=== PATIENT | male | born 1965 | race Caucasian/White ===

== ENCOUNTER → 2019-04-07 08:49 | Outpatient (BNVA) | payer MEDICAID, SELFPAY | PROVIDERS: Family Provider Nurse Practitioner Family; PCP Nurse Practitioner Family; Visit Provider Internal Medicine Rheumatology | DX: M05.79 Rheumatoid arthritis with rheumatoid factor of multiple sites without organ or systems involvement (principal); Z79.52 Long term (current) use of systemic steroids; Z79.899 Other long term (current) drug therapy; F17.200 Nicotine dependence, unspecified, uncomplicated | CPT/HCPCS: 96365; 96374; 99213; 99214; J3262; J7050 ==

== ENCOUNTER 2019-04-07 09:00 | Outpatient (CLI) | payer MEDICAID, SELFPAY | END 2019-04-07 09:01 | disposition home or self-care (01) | LOC: RHEOACUTE 04-24 14:39 | PROVIDERS: Family Provider Nurse Practitioner Family; PCP Nurse Practitioner Family; Visit Provider Internal Medicine Rheumatology | DX: Z76.89 Persons encountering health services in other specified circumstances (principal) | CPT/HCPCS: J3262 ==

== ENCOUNTER 2019-05-10 08:49 | Outpatient (CLI) | payer MEDICAID, SELFPAY ==
[2019-05-10 09:00] VITALS: BP 155/88; PULSE 99; RESP 16; TEMP 36.6; O2SAT 98
[2019-05-10 10:20] VITALS: BP 148/84; PULSE 88; RESP 18; TEMP 36.6; O2SAT 98
== END 2019-05-10 08:50 | disposition home or self-care (01) ==
LOC: RHEOACUTE 08:49
PROVIDERS: Family Provider Nurse Practitioner Family; PCP Nurse Practitioner Family; Visit Provider Internal Medicine Rheumatology
DX: M05.79 Rheumatoid arthritis with rheumatoid factor of multiple sites without organ or systems involvement (principal)
CPT/HCPCS: 96365; J3262

== ENCOUNTER 2019-06-07 08:50 | Outpatient (CLI) | payer MEDICAID, SELFPAY ==
[2019-06-07 09:15] VITALS: BP 137/95; PULSE 104; RESP 16; TEMP 36.7; O2SAT 93
[2019-06-07 11:05] VITALS: BP 158/98; PULSE 90; RESP 16; TEMP 36.9; O2SAT 94
== END 2019-06-07 08:51 | disposition home or self-care (01) ==
LOC: RHEOACUTE 08:50
PROVIDERS: Family Provider Nurse Practitioner Family; PCP Nurse Practitioner Family; Visit Provider Internal Medicine Rheumatology
DX: M05.79 Rheumatoid arthritis with rheumatoid factor of multiple sites without organ or systems involvement (principal); Z79.899 Other long term (current) drug therapy
CPT/HCPCS: 36415; 80076; 82565; 85651; 86140; 86480; 86704; 86803; 87340; 96365; J3262

== ENCOUNTER → 2019-06-07 09:51 | Outpatient (BNVA) | payer MEDICAID, SELFPAY | PROVIDERS: Family Provider Nurse Practitioner Family; PCP Nurse Practitioner Family; Visit Provider Internal Medicine Rheumatology | DX: M05.79 Rheumatoid arthritis with rheumatoid factor of multiple sites without organ or systems involvement (principal); Z79.899 Other long term (current) drug therapy | CPT/HCPCS: 85025 ==

== ENCOUNTER → 2019-06-12 11:46 | Outpatient (BNVA) | payer MEDICAID, SELFPAY | PROVIDERS: Family Provider Nurse Practitioner Family; PCP Nurse Practitioner Family; Visit Provider Internal Medicine Rheumatology | DX: M05.79 Rheumatoid arthritis with rheumatoid factor of multiple sites without organ or systems involvement (principal); Z79.899 Other long term (current) drug therapy; F17.210 Nicotine dependence, cigarettes, uncomplicated | CPT/HCPCS: 99214 ==

== ENCOUNTER 2019-06-12 13:05 | Outpatient (CLI) | payer MEDICAID, SELFPAY ==
--- NOTE | 2019-06-12 13:09 | XR_ITS ---
WS: [id number] XR hand RT min 3V* 30570 REASON FOR EXAM: rheumatoid arthritis FINDINGS: Ankylosing changes are noted between the ulna and radius articulations. There is loss of the articular space between the radius and carpal bones. There is deformity of the first metacarpal carpal articulation with cystic changes noted. There is degenerate changes of the distal interphalangeal joints. XR/XR hand RT min 3V* 99110 IMPRESSION: Moderately advanced osteoarthritic changes of the hand.
--- NOTE | 2019-06-12 13:09 | XR_ITS ---
WS: [id number] XR foot RT min 3V* 26423 REASON FOR EXAM: rheumatoid arthritis FINDINGS: Prominence of the head of the fifth metacarpal tarsal suggest Tailors bunion. There is a cyst in the distal proximal first phalanx. Degenerate changes along the anterior articula r surface of the talus, tarsal navicular and cuneiforms. XR/XR foot RT min 3V* 06013 IMPRESSION: Findings suggest osteoarthritis.
--- NOTE | 2019-06-12 13:09 | XR_ITS ---
WS: [id number] XR hand LT min 3V* 95203 REASON FOR EXAM: rheumatoid arthritis FINDINGS: This study shows subluxation of the phalanges from the carpal heads. There are cystic rios es seen in in the ulna and radius with large spur off the styloid process of the ulna. Cystic changes are also seen in the carpal bones. There is degenerate changes of the second and third metacarpal carpal carpal articulations. The subluxation differential diagnosis includes rheumatoid arthritis, lupus. There appears to be a mixture of rheumatoid and osteoarthritic changes. XR/XR hand LT min 3V* 86735 IMPRESSION: Sure arthritis with subluxation noted.
--- NOTE | 2019-06-12 13:09 | XR_ITS ---
WS: [id number] XR foot LT min 3V* 84788 REASON FOR EXAM: rheumatoid arthritis FINDINGS: Degenerated changes of the distal interphalangeal joints. The metacarpal tarsals and tarsals are normal. The calcaneus was normal. XR/XR foot LT min 3V* 52461 IMPRESSION: Osteoarthritic changes of the distal interphalangeal joints.
== END 2019-06-12 13:06 | disposition home or self-care (01) ==
LOC: RADWPI 13:08
PROVIDERS: Family Provider Nurse Practitioner Family; Visit Provider Internal Medicine Rheumatology
DX: M05.9 Rheumatoid arthritis with rheumatoid factor, unspecified (principal); M19.042 Primary osteoarthritis, left hand; M19.041 Primary osteoarthritis, right hand; M19.072 Primary osteoarthritis, left ankle and foot; M19.071 Primary osteoarthritis, right ankle and foot
CPT/HCPCS: 73130; 73630

== ENCOUNTER 2019-07-05 08:50 | Outpatient (CLI) | payer MEDICAID, SELFPAY ==
[2019-07-05 09:05] VITALS: BP 136/94; PULSE 92; RESP 16; TEMP 36.6; O2SAT 97
[2019-07-05 11:05] VITALS: BP 148/91; PULSE 95; RESP 16; TEMP 36.4
== END 2019-07-05 08:51 | disposition home or self-care (01) ==
LOC: RHEOACUTE 08:51
PROVIDERS: Family Provider Nurse Practitioner Family; Visit Provider Internal Medicine Rheumatology
DX: M05.79 Rheumatoid arthritis with rheumatoid factor of multiple sites without organ or systems involvement (principal)
CPT/HCPCS: 96365; J3262

== ENCOUNTER 2019-08-03 08:54 | Outpatient (CLI) | payer MEDICAID, SELFPAY ==
[2019-08-03 09:10] VITALS: BP 143/91; PULSE 96; RESP 16; TEMP 36.7; O2SAT 98
[2019-08-03 10:57] VITALS: BP 153/96; PULSE 94; RESP 16; TEMP 36.6
--- NOTE | 2019-08-03 10:59 | PC.NURSE ---
BP high. Discussed with pt BP has been pretty consistently high every infusion date. Instructed to take BP at home and f/u with PCP. Verbalized understanding.
== END 2019-08-03 08:55 | disposition home or self-care (01) ==
LOC: RHEOACUTE 08:55
PROVIDERS: Family Provider Nurse Practitioner Family; Visit Provider Internal Medicine Rheumatology
DX: M05.79 Rheumatoid arthritis with rheumatoid factor of multiple sites without organ or systems involvement (principal)
CPT/HCPCS: 96365; J3262

== ENCOUNTER 2019-08-31 08:33 | Outpatient (CLI) | payer MEDICAID, SELFPAY ==
[2019-08-31 08:41] VITALS: BP 150/94; PULSE 99; RESP 16; TEMP 36.8; O2SAT 97
[2019-08-31] MEDS: acetaminophen 325 mg Tablet 975 MG PO (09:26)
[2019-08-31] MEDS: diphenhydrAMINE 25 mg Capsule PO (09:26)
[2019-08-31 10:50] VITALS: BP 149/82; PULSE 104; RESP 16; TEMP 36.7; O2SAT 97
== END 2019-08-31 08:34 | disposition home or self-care (01) ==
LOC: RHEOACUTE 08:35
PROVIDERS: Family Provider Nurse Practitioner Family; Visit Provider Internal Medicine Rheumatology
DX: M05.79 Rheumatoid arthritis with rheumatoid factor of multiple sites without organ or systems involvement (principal)
CPT/HCPCS: 96365; J3262

== ENCOUNTER 2019-10-05 09:02 | Outpatient (CLI) | payer MEDICAID, SELFPAY ==
[2019-10-05 09:04] VITALS: BP 133/86; PULSE 100; RESP 16; TEMP 36.9; O2SAT 98
[2019-10-05] MEDS: acetaminophen 325 mg Tablet 975 MG PO (09:50)
[2019-10-05] MEDS: diphenhydrAMINE 25 mg Capsule PO (09:50)
[2019-10-05 13:14] VITALS: BP 136/82; PULSE 88; RESP 16; O2SAT 96
== END 2019-10-05 09:03 | disposition home or self-care (01) ==
LOC: RHEOACUTE 09:02
PROVIDERS: Family Provider Nurse Practitioner Family; Visit Provider Internal Medicine Rheumatology
DX: M05.79 Rheumatoid arthritis with rheumatoid factor of multiple sites without organ or systems involvement (principal); Z79.899 Other long term (current) drug therapy
CPT/HCPCS: 80076; 82565; 85025; 85651; 86140; 96365; J3262

== ENCOUNTER 2019-11-07 08:50 | Outpatient (CLI) | payer MEDICAID, SELFPAY ==
[2019-11-07 08:57] VITALS: BP 155/96; PULSE 97; RESP 16; TEMP 36.8; O2SAT 98
[2019-11-07 08:59] VITALS: BMI 25.1
[2019-11-07 10:53] VITALS: BP 139/98; PULSE 96; RESP 16; TEMP 36.8; O2SAT 96
--- NOTE | 2019-11-07 10:55 | PC.NURSE ---
Denies any changes to home medications.
== END 2019-11-07 08:51 | disposition home or self-care (01) ==
LOC: RHEOACUTE 08:50
PROVIDERS: Family Provider Nurse Practitioner Family; Visit Provider Internal Medicine Rheumatology
DX: M05.79 Rheumatoid arthritis with rheumatoid factor of multiple sites without organ or systems involvement (principal)
CPT/HCPCS: 96365; J3262

== ENCOUNTER 2019-12-06 09:22 | Outpatient (CLI) | payer MEDICAID, SELFPAY ==
[2019-12-06 09:26] VITALS: BP 157/96; PULSE 92; RESP 16; TEMP 36.6; O2SAT 92
[2019-12-06] MEDS: diphenhydrAMINE 25 mg Capsule PO (09:43)
[2019-12-06] MEDS: acetaminophen 325 mg Tablet 975 MG PO (09:43)
[2019-12-06 10:31] VITALS: BMI 25.1
--- NOTE | 2019-12-06 10:36 | PC.NURSE ---
c/o right arm and shoulder pain. Discussed taking the Prednisone dose for flare.
[2019-12-06 11:37] VITALS: BP 155/97; PULSE 90; RESP 16; O2SAT 96
== END 2019-12-06 09:23 | disposition home or self-care (01) ==
LOC: RHEOACUTE 09:24
PROVIDERS: Family Provider Nurse Practitioner Family; Visit Provider Internal Medicine Rheumatology
DX: M05.79 Rheumatoid arthritis with rheumatoid factor of multiple sites without organ or systems involvement (principal)
CPT/HCPCS: 96365; J3262

== ENCOUNTER 2020-01-03 09:17 | Outpatient (CLI) | payer MEDICAID, SELFPAY ==
[2020-01-03 09:00] VITALS: BP 155/102; PULSE 115; RESP 16; TEMP 36.3; O2SAT 98
[2020-01-03] MEDS: acetaminophen 325 mg Tablet 975 MG PO (09:28)
[2020-01-03] MEDS: diphenhydrAMINE 25 mg Capsule PO (09:28)
[2020-01-03 09:30] VITALS: BP 156/92; PULSE 98; RESP 16; O2SAT 98
[2020-01-03 11:00] VITALS: BP 148/95; PULSE 98; RESP 16; O2SAT 98
--- NOTE | 2020-01-03 11:21 | PC.NURSE ---
0900 Pt arrived for infusion. Verbalized upset that his father is dying in hospital out of town. Discussed whether or not to do infusion. Pt wanted to proceed. BP elevated. Dr. Ibarra notified. Will continue to monitor after resting.
--- NOTE | 2020-01-03 11:28 | PC.NURSE ---
0930 labs obtained with IV start.
== END 2020-01-03 09:18 | disposition home or self-care (01) ==
LOC: RHEOACUTE 09:17
PROVIDERS: Family Provider Nurse Practitioner Family; Visit Provider Internal Medicine Rheumatology
DX: Z79.899 Other long term (current) drug therapy (principal); M05.79 Rheumatoid arthritis with rheumatoid factor of multiple sites without organ or systems involvement
CPT/HCPCS: 80076; 82565; 85025; 85651; 86140; 96365; J3262

== ENCOUNTER 2020-02-05 09:43 | Outpatient (CLI) | payer MEDICAID, SELFPAY ==
[2020-02-05 09:40] VITALS: BP 142/90; PULSE 104; RESP 16; TEMP 36.6; O2SAT 98
[2020-02-05] MEDS: acetaminophen 325 mg Tablet 975 MG PO (09:48)
[2020-02-05] MEDS: diphenhydrAMINE 25 mg Capsule PO (09:48)
[2020-02-05 10:05] VITALS: BMI 25.1
[2020-02-05 11:20] VITALS: BP 136/91; PULSE 86; RESP 16; O2SAT 16
== END 2020-02-05 09:44 | disposition home or self-care (01) ==
LOC: RHEOACUTE 09:43
PROVIDERS: Family Provider Nurse Practitioner Family; Visit Provider Internal Medicine Rheumatology
DX: M05.79 Rheumatoid arthritis with rheumatoid factor of multiple sites without organ or systems involvement (principal)
CPT/HCPCS: 96365; J3262

== ENCOUNTER 2020-03-13 11:31 | Outpatient (CLI) | payer MEDICAID, SELFPAY ==
[2020-03-13 11:56] VITALS: BP 158/90; PULSE 84; RESP 18; TEMP 36.5; O2SAT 96
[2020-03-13] MEDS: acetaminophen 325 mg Tablet 975 MG PO (12:11)
[2020-03-13] MEDS: diphenhydrAMINE 25 mg Capsule PO (12:11)
[2020-03-13 12:29] VITALS: BMI 25.9
[2020-03-13 13:55] VITALS: BP 152/96; PULSE 101; RESP 16; O2SAT 98
== END 2020-03-13 11:32 | disposition home or self-care (01) ==
LOC: RHEOACUTE 11:32
PROVIDERS: Family Provider Nurse Practitioner Family; Visit Provider Internal Medicine Rheumatology
DX: M05.79 Rheumatoid arthritis with rheumatoid factor of multiple sites without organ or systems involvement (principal); Z79.899 Other long term (current) drug therapy; M65.9 Synovitis and tenosynovitis, unspecified; F17.210 Nicotine dependence, cigarettes, uncomplicated
CPT/HCPCS: 96365; 99214; J3262

== ENCOUNTER 2020-04-10 08:56 | Outpatient (CLI) | payer MEDICAID, SELFPAY ==
[2020-04-10 09:10] VITALS: BP 162/91; PULSE 88; RESP 16; TEMP 36.9; O2SAT 97
[2020-04-10] MEDS: diphenhydrAMINE 25 mg Capsule PO (09:45)
[2020-04-10] MEDS: acetaminophen 325 mg Tablet 975 MG PO (09:45)
[2020-04-10] MEDS: tocilizumab 400 MG, tocilizumab 200 MG, tocilizumab 80 MG in sodium chloride 0.9% (100 ... 100 MG IV (10:00)
[2020-04-10 10:51] VITALS: BMI 26.2
[2020-04-10 11:21] VITALS: BP 160/88; PULSE 89; RESP 16; O2SAT 96
== END 2020-04-10 08:57 | disposition home or self-care (01) ==
LOC: RHEOACUTE 08:56
PROVIDERS: Family Provider Nurse Practitioner Family; Visit Provider Internal Medicine Rheumatology
DX: M05.79 Rheumatoid arthritis with rheumatoid factor of multiple sites without organ or systems involvement (principal); Z79.899 Other long term (current) drug therapy
CPT/HCPCS: 80076; 82565; 85025; 85651; 86140; 96365; J3262

== ENCOUNTER 2020-05-16 13:35 | Outpatient (CLI) | payer MEDICAID, SELFPAY ==
[2020-05-16] MEDS: acetaminophen 325 mg Tablet 975 MG PO (14:05)
[2020-05-16] MEDS: diphenhydrAMINE 25 mg Capsule PO (14:05)
[2020-05-16 15:30] VITALS: BP 136/94; PULSE 18; RESP 17; TEMP 37.2; O2SAT 97
--- NOTE | 2020-06-03 08:49 | PC.NURSE ---
Due to an administrative issue we are doing a late entry for clarity of the medical record. The infusion case was routine and the approximate stop time was 1524 based upon the start time of 1424.
== END 2020-05-16 13:36 | disposition home or self-care (01) ==
LOC: RHEOACUTE 13:38 → ONCMED 13:40
PROVIDERS: Visit Provider Internal Medicine Rheumatology
DX: M05.79 Rheumatoid arthritis with rheumatoid factor of multiple sites without organ or systems involvement (principal)
CPT/HCPCS: 96365; J3262

== ENCOUNTER 2020-06-19 13:54 | Outpatient (CLI) | payer MEDICAID, SELFPAY ==
[2020-06-19 14:18] VITALS: BP 148/91; PULSE 97; RESP 16; TEMP 37; O2SAT 98
[2020-06-19] MEDS: diphenhydrAMINE 25 mg Capsule PO (14:40)
[2020-06-19] MEDS: acetaminophen 325 mg Tablet 975 MG PO (14:40)
[2020-06-19 14:57] LABS: Basophils % 0.5 %; Eosinophils # 0.1 10^3/uL (0.0-0.8); Eosinophils % 2.1 %; Hematocrit 44.7 % (42.0-52.0); Hemoglobin 14.8 g/dL (11.7-16.6); Lymphocytes # 1.7 10^3/uL (0.8-4.8); Lymphocytes % 28.1 %; Mean Corpuscular HGB Conc 33.1 g/dL (30.0-36.0); Mean Corpuscular Hemoglobin 29.5 pg (28.0-34.0); Mean Corpuscular Volume 89.2 fL (80-94); Mean Platelet Volume 10.2 fL (7.4-10.4); Neutrophils # 3.22 10^3/uL (1.8-7.7); Nucleated Red Blood Cells % 0 %; Platelet Count 272 10^3/cmm (130-400); Red Blood Count 5.01 10^6/uL (4.1-5.3); Red Cell Distribution Width 12.7 % (12.1-15.1); White Blood Count 6.1 10^3/uL (4.0-10.0)
[2020-06-19 15:40] VITALS: BP 136/87; PULSE 85; RESP 16; TEMP 36.6; O2SAT 95
[2020-06-19 15:41] LABS: Alanine Aminotransferase 35 U/L (0-41); Albumin Level 3.8 g/dL (3.5-5.2); Alkaline Phosphatase 84 IU/L (40-130); Aspartate Amino Transferase 28 U/L (0-40); C Reactive Protein 34.6 mg/L (0.0-4.9); Globulin 3.5 g/dL (1.3-4.6); Total Bilirubin 0.3 mg/dL (0.15-1.2); Total Protein 7.3 g/dL (6.6-8.7)
[2020-06-19 16:03] LABS: Erythrocyte Sedimentation Rate 13 mm/hr (0-10)
== END 2020-06-19 13:55 | disposition home or self-care (01) ==
PROVIDERS: Visit Provider Internal Medicine Rheumatology
DX: M05.79 Rheumatoid arthritis with rheumatoid factor of multiple sites without organ or systems involvement (principal)
CPT/HCPCS: 80076; 82565; 85025; 85651; 86140; 96365; J3262

== ENCOUNTER 2020-07-17 14:04 | Outpatient (CLI) | payer MEDICAID, SELFPAY ==
[2020-07-17 14:20] VITALS: BP 147/94; PULSE 108; RESP 18; TEMP 37.4; O2SAT 97
[2020-07-17] MEDS: acetaminophen 325 mg Tablet 975 MG PO (14:25)
[2020-07-17] MEDS: diphenhydrAMINE 25 mg Capsule PO (14:30)
[2020-07-17] MEDS: sodium chloride 0.9% 250 ML 75 ML IV (14:30)
[2020-07-17 16:05] VITALS: BP 126/89; PULSE 93; RESP 18; TEMP 37.2; O2SAT 97
[2020-07-17 16:19] VITALS: BP 126/89; PULSE 93; RESP 18; TEMP 37.2; O2SAT 93
== END 2020-07-17 14:05 | disposition home or self-care (01) ==
PROVIDERS: Visit Provider Internal Medicine Rheumatology
DX: M05.79 Rheumatoid arthritis with rheumatoid factor of multiple sites without organ or systems involvement (principal)
CPT/HCPCS: 96365; J3262; J7050

== ENCOUNTER 2020-08-14 14:02 | Outpatient (CLI) | payer MEDICAID, SELFPAY ==
[2020-08-14 14:23] VITALS: BP 145/100; PULSE 94; RESP 18; TEMP 37; O2SAT 98
[2020-08-14] MEDS: acetaminophen 325 mg Tablet 975 MG PO (14:43)
[2020-08-14] MEDS: diphenhydrAMINE 25 mg Capsule PO (14:43)
[2020-08-14 15:01] LABS: Basophils % 0.8 %; Eosinophils # 0.2 10^3/uL (0.0-0.8); Eosinophils % 4.4 %; Hematocrit 47.5 % (42.0-52.0); Hemoglobin 15.5 g/dL (11.7-16.6); Lymphocytes # 2.3 10^3/uL (0.8-4.8); Lymphocytes % 48.3 %; Mean Corpuscular HGB Conc 32.6 g/dL (30.0-36.0); Mean Corpuscular Hemoglobin 29.3 pg (28.0-34.0); Mean Corpuscular Volume 89.8 fL (80-94); Mean Platelet Volume 10.5 fL (7.4-10.4); Monocytes # 0.5 10^3/uL (0.2-0.9); Neutrophils # 1.71 10^3/uL (1.8-7.7); Neutrophils % 36.3 %; Nucleated Red Blood Cells % 0 %; Platelet Count 234 10^3/cmm (130-400); Red Blood Count 5.29 10^6/uL (4.1-5.3); Red Cell Distribution Width 13.2 % (12.1-15.1); White Blood Count 4.7 10^3/uL (4.0-10.0)
[2020-08-14] MEDS: sodium chloride 0.9% 250 ML 125 ML IV (15:18)
[2020-08-14 15:27] LABS: Alanine Aminotransferase 32 U/L (0-41); Alkaline Phosphatase 96 IU/L (40-130); Aspartate Amino Transferase 22 U/L (0-40); C Reactive Protein 0.4 mg/L (0.0-4.9); Glomerular Filtration Rate 87.3 mL/min (90-130); Total Bilirubin 0.4 mg/dL (0.15-1.2)
[2020-08-14 16:03] LABS: Erythrocyte Sedimentation Rate 2 mm/hr (0-10)
[2020-08-14 16:10] VITALS: BP 139/101; PULSE 78; RESP 18; TEMP 37.1; O2SAT 97
--- NOTE | 2020-08-14 16:16 | PC.NURSE ---
Patient to infusion suite for Actemra infusion. BP was elevated at 145/100 on initial assessment. Post infusion vitals indicate a continued elevated pressure at 139/101. I discussed with the patient that he should follow up with his family physician to address this. Patient is asymptomatic on discharge, and shows no s/s/ of distress. He voiced understanding about seeking attention for the elevated pressure, and agrees to follow up with their office.
== END 2020-08-14 14:03 | disposition home or self-care (01) ==
PROVIDERS: Visit Provider Internal Medicine Rheumatology
DX: M05.79 Rheumatoid arthritis with rheumatoid factor of multiple sites without organ or systems involvement (principal)
CPT/HCPCS: 80076; 82565; 85025; 85651; 86140; 96365; J3262; J7050

== ENCOUNTER 2020-09-11 13:53 | Outpatient (CLI) | payer MEDICAID, SELFPAY ==
[2020-09-11 14:19] VITALS: BP 135/90; PULSE 90; RESP 20; TEMP 37.2; O2SAT 98
[2020-09-11] MEDS: diphenhydrAMINE 25 mg Capsule PO (14:30)
[2020-09-11] MEDS: acetaminophen 325 mg Tablet 975 MG PO (14:30)
[2020-09-11] MEDS: sodium chloride 0.9% 250 ML 100 ML IV (14:33)
[2020-09-11 15:57] VITALS: BP 135/87; PULSE 87; RESP 18; TEMP 36.8; O2SAT 97
== END 2020-09-11 13:54 | disposition home or self-care (01) ==
PROVIDERS: Referring Provider Internal Medicine Rheumatology; Visit Provider Internal Medicine Rheumatology
DX: M05.79 Rheumatoid arthritis with rheumatoid factor of multiple sites without organ or systems involvement (principal)
CPT/HCPCS: 96365; J3262; J7050

== ENCOUNTER 2020-10-28 13:14 | Outpatient (CLI) | payer MEDICAID, SELFPAY ==
[2020-10-28 13:29] VITALS: BP 131/93; PULSE 95; RESP 20; TEMP 37.1; O2SAT 99
[2020-10-28] MEDS: diphenhydrAMINE 25 mg Capsule PO (13:57)
[2020-10-28] MEDS: acetaminophen 325 mg Tablet 975 MG PO (13:57)
[2020-10-28] MEDS: sodium chloride 0.9% 250 ML 75 ML IV (14:00)
[2020-10-28 14:27] LABS: Basophils % 0.7 %; Eosinophils # 0.3 10^3/uL (0.0-0.8); Eosinophils % 4.4 %; Hematocrit 49.7 % (42.0-52.0); Hemoglobin 16.1 g/dL (11.7-16.6); Lymphocytes # 1.9 10^3/uL (0.8-4.8); Lymphocytes % 31.3 %; Mean Corpuscular HGB Conc 32.4 g/dL (30.0-36.0); Mean Corpuscular Hemoglobin 29.9 pg (28.0-34.0); Mean Corpuscular Volume 92.2 fL (80-94); Mean Platelet Volume 10.1 fL (7.4-10.4); Monocytes # 0.8 10^3/uL (0.2-0.9); Monocytes % 13.1 %; Neutrophils # 3.06 10^3/uL (1.8-7.7); Neutrophils % 50.2 %; Nucleated Red Blood Cells % 0 %; Platelet Count 356 10^3/cmm (130-400); Red Blood Count 5.39 10^6/uL (4.1-5.3); Red Cell Distribution Width 12.6 % (12.1-15.1); White Blood Count 6.1 10^3/uL (4.0-10.0)
[2020-10-28 14:59] LABS: Alanine Aminotransferase 29 U/L (0-41); Albumin Level 3.9 g/dL (3.5-5.2); Alkaline Phosphatase 107 IU/L (40-130); Aspartate Amino Transferase 24 U/L (0-40); C Reactive Protein 3.1 mg/L (0.0-4.9); Globulin 3.6 g/dL (1.3-4.6); Glomerular Filtration Rate 77.3 mL/min (90-130); Total Bilirubin 0.2 mg/dL (0.15-1.2); Total Protein 7.5 g/dL (6.6-8.7)
[2020-10-28 15:02] LABS: Erythrocyte Sedimentation Rate 19 mm/hr (0-10)
[2020-10-28 15:23] VITALS: BP 147/98; PULSE 88; RESP 18; TEMP 36.7; O2SAT 99
== END 2020-10-28 13:15 | disposition home or self-care (01) ==
PROVIDERS: Visit Provider Internal Medicine Rheumatology
DX: M05.79 Rheumatoid arthritis with rheumatoid factor of multiple sites without organ or systems involvement (principal)
CPT/HCPCS: 80076; 82565; 85025; 85651; 86140; 96365; J3262; J7050

== ENCOUNTER 2020-11-25 09:54 | Outpatient (CLI) | payer MEDICAID, SELFPAY ==
[2020-11-25 10:01] VITALS: BP 145/100; PULSE 100; RESP 18; TEMP 36.6; O2SAT 97
[2020-11-25] MEDS: NON-FORMULARY MEDICATION 1 EACH SUBCUT (10:09)
[2020-11-25 10:19] VITALS: BP 145/98; PULSE 86; RESP 18; TEMP 37; O2SAT 96
== END 2020-11-25 09:55 | disposition home or self-care (01) ==
LOC: ONCMED 09:55
PROVIDERS: Referring Provider Internal Medicine Rheumatology; Visit Provider Internal Medicine Rheumatology
DX: M05.79 Rheumatoid arthritis with rheumatoid factor of multiple sites without organ or systems involvement (principal)
CPT/HCPCS: 96372

== ENCOUNTER → 2021-01-21 13:57 | Outpatient (BNVA) | payer MEDICAID, SELFPAY | PROVIDERS: Visit Provider Internal Medicine Rheumatology | DX: M05.79 Rheumatoid arthritis with rheumatoid factor of multiple sites without organ or systems involvement (principal); Z79.899 Other long term (current) drug therapy; Z71.89 Other specified counseling; F17.200 Nicotine dependence, unspecified, uncomplicated | CPT/HCPCS: 99214 ==

== ENCOUNTER 2021-02-28 15:37 | Emergency (ER) | payer MEDICAID, SELFPAY ==
--- NOTE | 2021-02-28 15:40 | XR_ITS ---
WS: [id number] Left shoulder, 3 views, 02/28/2021 Clinical Data: left shoulder pain Comparison: Left shoulder, 03/06/2015. Findings: There is severe erosion with cyst formation of the humeral head. The destructive changes have advance d significantly since the last shoulder x-ray. The AC joint is normal. The adjacent left clavicle and ribs are unremarkable. There is also irregularity and cyst formation of the adjacent glenoid. No fractures or dislocations are seen. XR/XR shoulder LT min 2V* 15738 Impression: Severe erosion of the left humeral head with cyst formation and sclerosis along with erosion and cyst formation of the adjacent glenoid.
[2021-02-28 16:10] VITALS: BP 144/89; PULSE 111; RESP 16; TEMP 36.8; O2SAT 95
--- NOTE | 2021-02-28 16:31 | ED_ITS ---
HPI - Extremity Problem General: Chief complaint: Extremity Injury, Upper Stated complaint: LEFT SHOULDER PAIN Time Seen by Provider: 02/28/21 16:31 Source: patient Mode of arrival: ambulatory Limitations: no limitations History of Present Illness: HPI Narrative: 55-year-old male presents to the ER today for left shoulder pain. Patient reports 3 days ago he slept with his arm a lakisha his head and reports he woke up with severe left shoulder pain and numbness into his hand at times. Patient reports he has degeneration of the left shoulder joint which he is aware of however it does not normally bother him this much. Patient has a history of severe rheumatoid arthritis and is currently taking an injection for that. Patient was prescribed prednisone and tizanidine yesterday h owever it is not touching his pain and he is unable to rest. Patient denies headache, fever, chills, chest pain, shortness of breath, nausea, vomiting, diarrhea, constipation. MD Complaint: extremity pain and extremity swelling Onset (ago): day(s) (3) Pain Consistency: constant Location: left and upper extremity Severity scale (1-10): 9 Quality: aching Relieving factors: nothing Exacerbating factors: range of motion Associated symptoms: Deny chest pain, fever(s) or rash Review of Systems General: Reports: 10 or more systems reviewed and unremarkable except in HPI and below Const: Denies: fever(s), chills or body aches ENMT: Denies: throat pain, nasal discharge or nasal congestion Card: Denies: chest pain or palpitations Resp: Denies: dyspnea, productive cough or wheezing GI: Denies: abdominal pain, nausea, vomiting, diarrhea or constipation Musc: Reports: joint pain (left shoulder); Denies: neck pain or back pain Skin/Breast: Denies: rash or pruritus Neuro: Denies: headache(s) PFSH ED PFSH: Medical History High risk medication use Immunization counseling Rheumatoid arthritis with rheumatoid factor Surgical History History of cholecystectomy Previous back surgery Family History Other Family history of premature coronary artery disease Heart attack Denies family history of Rheumatoid arthritis Diabetes Lupus Hypertension Social History Smoking and tobacco status: current every day smoker Alcohol intake: never Marital status: History of recent travel: No Physical Exam Const: COMMON NORMALS: average body habitus, patient oriented x3 and no limitations GENERAL APPEARANCE: cooperative; not comfortable HENMT: COMMON NORMALS: normocephalic, external ears normal and Normal external nose present HEAD & SCALP: normocephalic NOSE: Normal external nose present EXTERNAL EAR: Yes external ears normal Eye: COMMON NORMALS: conjunctivae normal CONJUNCTIVA: Yes conjunctivae normal Neck/C-Spine: COMMON NORMALS: full ROM and no lymphadenopathy Resp: COMMON NORMALS: normal respiratory effort, No retractions and clear to auscultation bilaterally EFFORT & INSPECTION: Yes able to speak in complete sentences AUSCULTATION: clear to auscultation bilaterally Cardio: COMMON NORMALS: regular rate, regular rhythm and No murmurs present (Cardio) RATE: regular rate RHYTHM: regular rhythm GI: COMMON NORMALS: Soft to palpation and non-tender PALPATION: Yes Soft to palpation Extremity: LEFT UPPER EXTREMITY: Yes shoulder joint Left shoulder joint: Yes inspection (left shoulder sits lower than the R shoulder ), Yes palpation (TTP over entire should joint), Yes ROM (significantly decreased with severe pain) and Yes neurovascular exam (normal) Neuro: COMMON NORMALS: patient oriented x3 and gait normal Psych: COMMON NORMALS: mental status grossly normal, Normal thought process present, cooperative and normal affect THOUGHT PROCESS: Normal thought process present Skin: COMMON NORMALS: no rashes or lesions noted GENERAL SKIN EXAM: no rashes or lesions noted Course ED course: Patient presents to the ER today for left shoulder pain. Patient slept wrong 3 days ago on the shoulder. He was seen by Dr. Burrellterday and prescribed prednisone and tizanidine however it is not taking the edge of the pain and he is unable to sleep. Patient has a known history of degenerative joint of the left shoulder due to his severe RA. Patient needing something for pain at this time and to make sure there was no further damage done. Consultations: Consultation #1: Dr. Cody- discussed pt with and agreed with treatment plan. Time: 16:51 Vital Signs: Vital signs: Vital Signs Temperature 98.3 F 02/28/21 16:10 Pulse Rate 111 H 02/28/21 16:10 Respiratory Rate 16 02/28/21 16:10 Blood Pressure 144/89 02/28/21 16:10 Pulse Oximetry 95 02/28/21 16:10 MDM - Extremity (Nontraumatic) MDM Narrative: Medical decision making narrative: 55-year-old male presents to the ER today for left shoulder pain x3 days. 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 Patient has severe RA. Patient was given prednisone and tizanidine yesterday with no improvement. I discussed this patient with Dr. Cody who is okay with giving patient something for pain however he wants him to stop the tizanidine at this time. Patient also needs to be referred to Ortho as this is not something that is going to improve. Case management referral placed. Patient given hydrocodone x4 days. Patient should stop the tizanidine and continue other home meds. Ice and rest recommended. Return to the ER with new or worsening symptoms. Patient verbalized understanding and is in agreement with this treatment plan. Imaging Data^: Xray Ortho: Radiologist's impression: [address] [place] [address] XRay Report Signed Patient: Thuan Bowman Unit #: [id number] : 1965 Age/Sex: 55 / M ADM Date: 02/28/21 Loc: ER Room/Bed: Attending Dr: Ordering Provider/Ordering MD: Rylie Leal Date of Service: 02/28/21 Procedure(s): XR shoulder LT min 2V* 78739 Accession Number(s): [id number] Report Number: [id number] WS: [id number] Left shoulder, 3 views, 02/28/2021 Clinical Data: left shoulder pain Comparison: Left shoulder, 03/06/2015. Findings: There is severe erosion with cyst formation of the humeral head. The destructive changes have advanced significantly since the last shoulder x-ray. The AC joint is normal. The adjacent left clavicle and ribs are unremarkable. There is also irregularity and cyst formation of the adjacent glenoid. No fractures or dislocations are seen. XR/XR shoulder LT min 2V* 51912 Impression: Severe erosion of the left humeral head with cyst formation and sclerosis along with erosion and cyst formation of the adjacent glenoid. Dictated By: Marimar Lr MD Signed By: Marimar Lr MD Signed Date/Time: 02/28/21 1603 Discharge Plan Discharge Patient Disposition: Home Clinical Impression: Acute pain of left shoulder Condition: Stable Prescriptions: New hydrocodone-acetaminophen 5-325 mg tablet 1 tab PO Q8H PRN (Reason: pain) Qty: 12 RF: 0 No Action prednisone 10 mg tablet See Rx Instructions PO .COMPLEX PRN (Reason: joint pain) Qty: 30 RF: 1 pantoprazole 20 mg tablet,delayed release (DR/EC) 20 mg PO QAM RF: 0 folic acid 1 mg tablet 1 mg PO DAILY RF: 0 Kevzara 200 mg/1.14 mL pen injector 200 mg SUBCUT Q14D Qty: 2.28 RF: 3 Discharge Orders: Discharge ED (Routine); Ordered 02/28/21 Ordered By: Rylie Leal Discharge Diet: Usual diet Discharge Activity: Limit activity as instructed Patient Instructions: Shoulder Pain (ED), Opioid Safety Activity Restrictions/Additional Instructions: Take medications as prescribed. Continue home medications including prednisone but stop the tizanidine until finished with pain medication. Ice and rest recommended. Follow-up with Ortho as discussed. Return to the ER with any new or worsening symptoms. Coding Level of Care Code ED Pantograph Transferrer for Leyla Reynolds
--- NOTE | 2021-03-03 10:41 | DCPLANNER ---
store operations manager had message to schedule a follow up appointment for patient with ortho. store operations manager called the ortho clinic, spoke with Areli, gave clinic patients information. store operations manager was told that patients information would be printed and reviewed. Clinic will call patient with appointment information.
--- NOTE | 2021-03-06 07:46 | DCPLANNER ---
Patient has a follow up appointment scheduled for Thursday, March 18, [address] at 2:[address] Fischer at [facility]. Clinic will call patient with appointment information.
--- NOTE | 2021-03-21 11:37 | DCPLANNER ---
Patient had a follow up appointment scheduled for 03.18.21 with ortho - patient did attend appointment.
== END 2021-02-28 16:46 | disposition home or self-care (01) ==
PROVIDERS: Emergency Provider Physician Assistant
DX: M25.512 Pain in left shoulder (principal); F17.210 Nicotine dependence, cigarettes, uncomplicated
CPT/HCPCS: 73030; 99282

== ENCOUNTER → 2021-03-11 14:50 | Outpatient (BNVA) | payer MEDICAID, SELFPAY | PROVIDERS: PCP Nurse Practitioner; Visit Provider Internal Medicine Rheumatology | DX: M05.79 Rheumatoid arthritis with rheumatoid factor of multiple sites without organ or systems involvement (principal); Z79.899 Other long term (current) drug therapy; Z71.89 Other specified counseling; F17.210 Nicotine dependence, cigarettes, uncomplicated | CPT/HCPCS: 99214 ==

== ENCOUNTER 2021-04-16 09:59 | Outpatient (CLI) | payer MEDICAID, SELFPAY ==
--- NOTE | 2021-04-16 09:45 | CT_ITS ---
WS: [id number] NONCONTRAST CT LEFT SHOULDER TECHNIQUE: Noncontrast CT left shoulder with coronal and sagittal reformatted images. CLINICAL INFORMATION: M25.519 - Pain in unspecified shoulder COMPARISON: None. DLP: 1785.[address] scans at [facility] use at least one of these dose optimization techniques: automated e xposure control; mA and/or kV adjustment per patient size (includes targeted exams where dose is matc hed to clinical indication); or iterative reconstruction. FINDINGS: Mild degenerative arthritis AC joint with tiny erosions involving the distal tip of the clavicle. Mil d downsloping acromion. Extensive subchondral cystic change involving the humeral head and glenoid. S ubchondral cystic erosions involving the glenoid. Marked thickening of the synovial capsule likely se quelae of rheumatoid arthritis. Associated subacromial and subdeltoid fluid with joint effusion. Incr eased fluid in the axillary pouch. Large erosion involving the glenoid measuring 1.5 x 2.0 cm. Associ ated flattening of the humeral head. Marked erosive change involving the glenoid. Tiny loose body along the posterior glenoid rim measurin g 4 mm. No intra-articular loose bodies. 3 mm noncalcified nodule left upper lobe anteriorly. Fibrosi s in the left lung apex. Additional small nodes calcified left upper lobe nodule measuring [address]/CT shoulder LT wo con* [id number] IMPRESSION: 1. Advanced erosive changes involving the humeral head and glenoid compatible with history of rheumatoid arthritis. Diffuse synovial thickening involving the joint capsule with joint effusion. As 2. Mild flattening of the humeral head with extensive erosive and subchondral cystic changes. 3. Diffuse erosion of the glenoid rim. No intra-articular loose bodies.
== END 2021-04-16 10:00 | disposition home or self-care (01) ==
LOC: RADWPI 10:01 → RAD 15:42
PROVIDERS: PCP Nurse Practitioner; Visit Provider Orthopaedic Surgery
DX: M25.512 Pain in left shoulder (principal)
CPT/HCPCS: 73200

== ENCOUNTER 2021-06-05 08:55 | Outpatient (CLI) | payer MEDICAID, SELFPAY ==
[2021-06-05 09:12] VITALS: BP 115/81; PULSE 100; RESP 18; TEMP 36.6; O2SAT 98
[2021-06-05] MEDS: acetaminophen 325 mg Tablet 650 MG PO (09:24)
[2021-06-05] MEDS: diphenhydrAMINE 50 mg/mL SDV 1mL 25 MG IV (09:26)
[2021-06-05] MEDS: sodium chloride 0.9% 250 ML 50 ML IV (09:26)
[2021-06-05 09:27] LABS: Basophils # 0.1 10^3/uL (0.0-0.1); Basophils % 0.7 %; Eosinophils # 0.2 10^3/uL (0.0-0.8); Eosinophils % 3.4 %; Hematocrit 47.6 % (42.0-52.0); Hemoglobin 15.5 g/dL (11.7-16.6); Lymphocytes # 2.3 10^3/uL (0.8-4.8); Lymphocytes % 33.4 %; Mean Corpuscular HGB Conc 32.6 g/dL (30.0-36.0); Mean Corpuscular Hemoglobin 29.7 pg (28.0-34.0); Mean Corpuscular Volume 91.2 fl (80-94); Mean Platelet Volume 10.3 fL (7.4-10.4); Monocytes # 0.8 10^3/uL (0.2-0.9); Monocytes % 11.6 %; Neutrophils # 3.53 10^3/uL (1.8-7.7); Neutrophils % 50.8 %; Nucleated Red Blood Cells % 0 %; Platelet Count 294 10^3/cmm (130-400); Red Blood Count 5.22 10^6/uL (4.1-5.3); Red Cell Distribution Width 13.2 % (12.1-15.1)
[2021-06-05 09:46] LABS: Alanine Aminotransferase 30 U/L (0-41); Albumin Level 4.4 g/dL (3.5-5.2); Alkaline Phosphatase 87 IU/L (40-130); Globulin 3.6 g/dL (1.3-4.6); Glomerular Filtration Rate 99.6 mL/min (90-130); Total Bilirubin 0.4 mg/dL (0.15-1.2)
[2021-06-05 10:05] LABS: Erythrocyte Sedimentation Rate 3 mm/hr (0-10)
[2021-06-05 10:49] LABS: Aspartate Amino Transferase 25 U/L (0-40)
[2021-06-05 11:01] VITALS: BP 107/73; PULSE 102; RESP 18; TEMP 36.9; O2SAT 96
== END 2021-06-05 08:56 | disposition home or self-care (01) ==
PROVIDERS: PCP Nurse Practitioner; Referring Provider Internal Medicine Rheumatology; Visit Provider Internal Medicine Rheumatology
DX: M05.79 Rheumatoid arthritis with rheumatoid factor of multiple sites without organ or systems involvement (principal); Z79.899 Other long term (current) drug therapy
CPT/HCPCS: 80076; 82565; 85025; 85651; 96365; 96375; J1200; J2920; J3262; J7050

== ENCOUNTER 2021-07-03 08:56 | Outpatient (CLI) | payer MEDICAID, SELFPAY ==
[2021-07-03 09:08] VITALS: BP 133/87; PULSE 66; RESP 18; TEMP 36.9; O2SAT 99
[2021-07-03] MEDS: acetaminophen 325 mg Tablet 650 MG PO (09:34)
[2021-07-03] MEDS: sodium chloride 0.9% 250 ML 50 ML IV (09:36)
[2021-07-03] MEDS: diphenhydrAMINE 50 mg/mL SDV 1mL 25 MG IV (09:37)
[2021-07-03] MEDS: tocilizumab 400 MG, tocilizumab 200 MG, tocilizumab 80 MG in sodium chloride 0.9% (100 ... 100 MG IV (09:42)
[2021-07-03 10:43] VITALS: BP 125/86; PULSE 83; RESP 18; TEMP 36.6; O2SAT 91
== END 2021-07-03 08:57 | disposition home or self-care (01) ==
LOC: ONCMED 08:58
PROVIDERS: PCP Nurse Practitioner; Referring Provider Internal Medicine Rheumatology; Visit Provider Internal Medicine Medical Oncology
DX: M05.79 Rheumatoid arthritis with rheumatoid factor of multiple sites without organ or systems involvement (principal); Z79.899 Other long term (current) drug therapy
CPT/HCPCS: J1200; J2920; J3262; J7050

== ENCOUNTER → 2021-07-08 12:53 | Outpatient (BNVA) | payer MEDICAID, SELFPAY | PROVIDERS: PCP Nurse Practitioner; Visit Provider Internal Medicine Rheumatology | DX: M05.79 Rheumatoid arthritis with rheumatoid factor of multiple sites without organ or systems involvement (principal); Z79.899 Other long term (current) drug therapy; Z71.89 Other specified counseling; F17.200 Nicotine dependence, unspecified, uncomplicated | CPT/HCPCS: 99214 ==

== ENCOUNTER 2021-09-24 09:30 | Outpatient (CLI) | payer MEDICAID, SELFPAY ==
[2021-09-24 09:48] VITALS: BP 144/83; PULSE 84; RESP 18; TEMP 37.2; O2SAT 98
[2021-09-24 10:00] LABS: Basophils % 0.5 %; Eosinophils # 0.2 10^3/uL (0.0-0.8); Eosinophils % 3.3 %; Lymphocytes # 1.7 10^3/uL (0.8-4.8); Lymphocytes % 26.8 %; Mean Corpuscular HGB Conc 32.6 g/dL (30.0-36.0); Mean Corpuscular Hemoglobin 29.3 pg (28.0-34.0); Mean Platelet Volume 10.1 fL (7.4-10.4); Monocytes # 0.5 10^3/uL (0.2-0.9); Monocytes % 8.6 %; Neutrophils % 60.5 %; Nucleated Red Blood Cells % 0 %; Platelet Count 312 10^3/cmm (130-400); Red Blood Count 4.78 10^6/uL (4.1-5.3); Red Cell Distribution Width 12.8 % (12.1-15.1); White Blood Count 6.3 10^3/uL (4.0-10.0)
[2021-09-24 10:17] LABS: Albumin Level 4.2 g/dL (3.5-5.2); Alkaline Phosphatase 100 IU/L (40-130); Aspartate Amino Transferase 15 U/L (0-40); Globulin 3.7 g/dL (1.3-4.6); Total Bilirubin 0.4 mg/dL (0.15-1.2); Total Protein 7.9 g/dL (6.6-8.7)
[2021-09-24] MEDS: sodium chloride 0.9% 250 ML 50 ML IV (10:17)
[2021-09-24] MEDS: acetaminophen 325 mg Tablet 650 MG PO (10:17)
[2021-09-24] MEDS: diphenhydrAMINE 50 mg/mL SDV 1mL 25 MG IVP (10:19)
[2021-09-24 10:27] LABS: Alanine Aminotransferase 14 U/L (0-41)
[2021-09-24 11:52] VITALS: BP 137/90; PULSE 83; RESP 18; TEMP 37; O2SAT 96
[2021-09-26 13:34] LABS: Erythrocyte Sedimentation Rate 9 mm/hr (0-10)
== END 2021-09-24 09:31 | disposition home or self-care (01) ==
LOC: ONCMED 09:31
PROVIDERS: PCP Nurse Practitioner; Referring Provider Internal Medicine Rheumatology; Visit Provider Internal Medicine Rheumatology
DX: M05.79 Rheumatoid arthritis with rheumatoid factor of multiple sites without organ or systems involvement (principal); Z79.899 Other long term (current) drug therapy
CPT/HCPCS: 80076; 82565; 85025; 85651; 96365; 96375; J1200; J2920; J3262; J7050

== ENCOUNTER → 2021-10-28 09:26 | Outpatient (BNVA) | payer MEDICAID, SELFPAY | PROVIDERS: PCP Nurse Practitioner; Visit Provider Internal Medicine Rheumatology | DX: M05.79 Rheumatoid arthritis with rheumatoid factor of multiple sites without organ or systems involvement (principal); Z79.899 Other long term (current) drug therapy; Z71.89 Other specified counseling; F17.200 Nicotine dependence, unspecified, uncomplicated | CPT/HCPCS: 99214 ==

== ENCOUNTER 2021-11-03 10:12 | Outpatient (CLI) | payer MEDICAID, SELFPAY ==
[2021-11-03 10:32] VITALS: BP 127/86; PULSE 106; RESP 18; TEMP 36.8; O2SAT 99
[2021-11-03 10:46] LABS: Basophils # 0.1 10^3/uL (0.0-0.1); Basophils % 0.6 %; Eosinophils # 0.1 10^3/uL (0.0-0.8); Eosinophils % 1.7 %; Hematocrit 47.7 % (42.0-52.0); Hemoglobin 15.1 g/dL (11.7-16.6); Lymphocytes # 1.9 10^3/uL (0.8-4.8); Lymphocytes % 24.3 %; Mean Corpuscular HGB Conc 31.7 g/dL (30.0-36.0); Mean Corpuscular Hemoglobin 29.2 pg (28.0-34.0); Mean Corpuscular Volume 92.1 fl (80-94); Mean Platelet Volume 10.2 fL (7.4-10.4); Monocytes # 0.8 10^3/uL (0.2-0.9); Monocytes % 9.8 %; Neutrophils # 4.96 10^3/uL (1.8-7.7); Neutrophils % 63.2 %; Nucleated Red Blood Cells % 0 %; Platelet Count 350 10^3/cmm (130-400); Red Blood Count 5.18 10^6/uL (4.1-5.3); White Blood Count 7.9 10^3/uL (4.0-10.0)
[2021-11-03] MEDS: acetaminophen 325 mg Tablet 650 MG PO (10:46)
[2021-11-03] MEDS: sodium chloride 0.9% 250 ML 50 ML IV (10:46)
[2021-11-03] MEDS: diphenhydrAMINE 50 mg/mL SDV 1mL 25 MG IVP (10:48)
[2021-11-03 10:53] LABS: Erythrocyte Sedimentation Rate 8 mm/hr (0-10)
[2021-11-03 11:11] LABS: Alanine Aminotransferase 26 U/L (0-41); Albumin Level 4.6 g/dL (3.5-5.2); Alkaline Phosphatase 99 IU/L (40-130); Aspartate Amino Transferase 19 U/L (0-40); Globulin 3.4 g/dL (1.3-4.6); Glomerular Filtration Rate 62.4 mL/min (90-130); Total Bilirubin 0.4 mg/dL (0.15-1.2)
[2021-11-03 12:05] VITALS: BP 136/94; PULSE 93; RESP 18; TEMP 36.8; O2SAT 98
== END 2021-11-03 10:13 | disposition home or self-care (01) ==
PROVIDERS: PCP Nurse Practitioner; Referring Provider Internal Medicine Rheumatology; Visit Provider Internal Medicine Rheumatology
DX: M05.79 Rheumatoid arthritis with rheumatoid factor of multiple sites without organ or systems involvement (principal)
CPT/HCPCS: 80076; 82565; 85025; 85651; 96365; 96375; J1200; J2920; J3262; J7050

== ENCOUNTER 2021-12-02 10:08 | Outpatient (CLI) | payer MEDICAID, SELFPAY ==
[2021-12-02 10:18] VITALS: BP 130/89; PULSE 92; RESP 18; TEMP 36.8; O2SAT 98
[2021-12-02] MEDS: sodium chloride 0.9% 250 ML 50 ML IV (10:34)
[2021-12-02] MEDS: acetaminophen 325 mg Tablet 650 MG PO (10:35)
[2021-12-02] MEDS: diphenhydrAMINE 50 mg/mL SDV 1mL 25 MG IVP (10:37)
[2021-12-02 12:15] VITALS: BP 141/87; PULSE 86; RESP 18; TEMP 36.9; O2SAT 97
== END 2021-12-02 10:09 | disposition home or self-care (01) ==
PROVIDERS: PCP Nurse Practitioner; Visit Provider Internal Medicine Rheumatology
DX: M05.79 Rheumatoid arthritis with rheumatoid factor of multiple sites without organ or systems involvement (principal)
CPT/HCPCS: 96365; 96375; J1200; J2920; J3262; J7050

== ENCOUNTER 2021-12-29 09:00 | Outpatient (CLI) | payer MEDICAID, SELFPAY ==
[2021-12-29 09:23] VITALS: BP 125/76; PULSE 97; RESP 18; TEMP 36.8; O2SAT 95
[2021-12-29 09:34] LABS: Basophils % 0.4 %; Eosinophils # 0.1 10^3/uL (0.0-0.8); Eosinophils % 0.7 %; Hematocrit 49.4 % (42.0-52.0); Hemoglobin 16.3 g/dL (11.7-16.6); Lymphocytes # 1.4 10^3/uL (0.8-4.8); Lymphocytes % 18.6 %; Mean Corpuscular Hemoglobin 29.6 pg (28.0-34.0); Mean Corpuscular Volume 89.7 fl (80-94); Mean Platelet Volume 10.5 fL (7.4-10.4); Monocytes # 0.4 10^3/uL (0.2-0.9); Monocytes % 5.2 %; Neutrophils # 5.75 10^3/uL (1.8-7.7); Neutrophils % 74.8 %; Nucleated Red Blood Cells % 0 %; Platelet Count 306 10^3/cmm (130-400); Red Blood Count 5.51 10^6/uL (4.1-5.3); Red Cell Distribution Width 13.4 % (12.1-15.1); White Blood Count 7.7 10^3/uL (4.0-10.0)
[2021-12-29] MEDS: sodium chloride 0.9% 250 ML 50 ML IV (09:45)
[2021-12-29] MEDS: acetaminophen 325 mg Tablet 650 MG PO (09:46)
[2021-12-29] MEDS: diphenhydrAMINE 50 mg/mL SDV 1mL 25 MG IVP (09:47)
[2021-12-29 10:03] LABS: Alanine Aminotransferase 47 U/L (0-41); Albumin Level 4.5 g/dL (3.5-5.2); Alkaline Phosphatase 107 U/L (40-130); Globulin 3.4 g/dL (1.3-4.6); Glomerular Filtration Rate 76.7 mL/min (90-130); Total Bilirubin 0.4 mg/dL (0.15-1.2); Total Protein 7.9 g/dL (6.6-8.7)
[2021-12-29 10:06] LABS: Aspartate Amino Transferase 27 U/L (0-40)
[2021-12-29 10:15] LABS: Erythrocyte Sedimentation Rate 1 mm/hr (0-10)
[2021-12-29 11:08] VITALS: BP 143/94; PULSE 90; RESP 18; TEMP 36.4; O2SAT 93
== END 2021-12-29 09:01 | disposition home or self-care (01) ==
LOC: ONCMED 09:01
PROVIDERS: PCP Nurse Practitioner; Visit Provider Internal Medicine Rheumatology
DX: M05.9 Rheumatoid arthritis with rheumatoid factor, unspecified (principal); Z79.899 Other long term (current) drug therapy
CPT/HCPCS: 80076; 82565; 85025; 85651; 96365; 96375; J1200; J2920; J3262; J7050

== ENCOUNTER 2022-01-27 08:42 | Outpatient (CLI) | payer MEDICAID, SELFPAY ==
[2022-01-27 08:46] VITALS: BP 143/89; PULSE 99; RESP 18; TEMP 36.4; O2SAT 96
[2022-01-27] MEDS: sodium chloride 0.9% 250 ML 50 ML IV (09:09)
[2022-01-27] MEDS: acetaminophen 325 mg Tablet 650 MG PO (09:11)
[2022-01-27] MEDS: diphenhydrAMINE 50 mg/mL SDV 1mL 25 MG IVP (09:12)
[2022-01-27 10:25] VITALS: BP 149/91; PULSE 91; RESP 18; TEMP 36.6; O2SAT 96
== END 2022-01-27 08:43 | disposition home or self-care (01) ==
LOC: ONCMED 08:43
PROVIDERS: PCP Nurse Practitioner; Visit Provider Internal Medicine Rheumatology
DX: M05.79 Rheumatoid arthritis with rheumatoid factor of multiple sites without organ or systems involvement (principal)
CPT/HCPCS: 96365; 96375; J1200; J2920; J3262; J7050

== ENCOUNTER → 2022-02-24 09:39 | Outpatient (BNVA) | payer MEDICAID, SELFPAY | PROVIDERS: PCP Nurse Practitioner; Visit Provider Internal Medicine Rheumatology | DX: M05.79 Rheumatoid arthritis with rheumatoid factor of multiple sites without organ or systems involvement (principal); Z71.89 Other specified counseling; Z79.899 Other long term (current) drug therapy | CPT/HCPCS: 99214 ==

== ENCOUNTER 2022-02-26 10:18 | Outpatient (CLI) | payer MEDICAID, SELFPAY ==
[2022-02-26 10:39] VITALS: BP 133/90; PULSE 97; RESP 18; TEMP 36.9; O2SAT 100
[2022-02-26 10:45] LABS: Basophils % 0.8 %; Eosinophils # 0.1 10^3/uL (0.0-0.8); Eosinophils % 2.4 %; Hemoglobin 16.6 g/dL (11.7-16.6); Lymphocytes # 1.4 10^3/uL (0.8-4.8); Lymphocytes % 28.8 %; Mean Corpuscular HGB Conc 33.2 g/dL (30.0-36.0); Mean Corpuscular Hemoglobin 30.3 pg (28.0-34.0); Mean Corpuscular Volume 91.2 fl (80-94); Mean Platelet Volume 10.3 fL (7.4-10.4); Monocytes # 0.9 10^3/uL (0.2-0.9); Neutrophils # 2.49 10^3/uL (1.8-7.7); Neutrophils % 49.8 %; Nucleated Red Blood Cells % 0 %; Platelet Count 273 10^3/cmm (130-400); Red Blood Count 5.48 10^6/uL (4.1-5.3); Red Cell Distribution Width 13.3 % (12.1-15.1)
[2022-02-26 10:46] LABS: Erythrocyte Sedimentation Rate 4 mm/hr (0-10)
[2022-02-26] MEDS: acetaminophen 325 mg Tablet 650 MG PO (10:58)
[2022-02-26] MEDS: sodium chloride 0.9% 250 ML 50 ML IV (10:58)
[2022-02-26] MEDS: diphenhydrAMINE 50 mg/mL SDV 1mL 25 MG IVP (11:00)
[2022-02-26] MEDS: tocilizumab 400 MG, tocilizumab 200 MG, tocilizumab 80 MG in sodium chloride 0.9% (100 ... 100 MG IV (11:09)
[2022-02-26 11:15] LABS: Alanine Aminotransferase 37 U/L (0-41); Albumin Level 4.2 g/dL (3.5-5.2); Alkaline Phosphatase 99 U/L (40-130); Aspartate Amino Transferase 23 U/L (0-40); Globulin 3.8 g/dL (1.3-4.6); Glomerular Filtration Rate 86.7 mL/min (90-130); Total Bilirubin 0.5 mg/dL (0.15-1.2)
[2022-02-26 12:13] VITALS: BP 136/93; PULSE 89; RESP 18; TEMP 37.1; O2SAT 97
== END 2022-02-26 10:19 | disposition home or self-care (01) ==
PROVIDERS: PCP Nurse Practitioner; Referring Provider Internal Medicine Rheumatology; Visit Provider Internal Medicine Rheumatology
DX: M05.79 Rheumatoid arthritis with rheumatoid factor of multiple sites without organ or systems involvement (principal)
CPT/HCPCS: 80076; 82565; 85025; 85651; 96365; 96375; J1200; J2920; J3262; J7050

== ENCOUNTER 2022-03-26 09:03 | Outpatient (CLI) | payer MEDICAID, SELFPAY ==
[2022-03-26 09:13] VITALS: BP 134/94; PULSE 99; RESP 18; TEMP 36.4; O2SAT 97
[2022-03-26] MEDS: sodium chloride 0.9% 250 ML 50 ML IV (09:31)
[2022-03-26] MEDS: acetaminophen 325 mg Tablet 650 MG PO (09:35)
[2022-03-26] MEDS: diphenhydrAMINE 50 mg/mL SDV 1mL 25 MG IVP (09:36)
[2022-03-26 10:49] VITALS: BP 127/84; PULSE 90; RESP 18; TEMP 36.8; O2SAT 96
== END 2022-03-26 09:04 | disposition home or self-care (01) ==
LOC: ONCMED 09:03
PROVIDERS: PCP Nurse Practitioner; Visit Provider Internal Medicine Rheumatology
DX: M05.79 Rheumatoid arthritis with rheumatoid factor of multiple sites without organ or systems involvement (principal)
CPT/HCPCS: 96365; 96375; J1200; J2920; J3262; J7050

== ENCOUNTER 2022-05-04 11:33 | Outpatient (CLI) | payer MEDICAID, SELFPAY ==
[2022-05-04 12:37] LABS: Basophils # 0.1 10^3/uL (0.0-0.1); Basophils % 0.5 %; Eosinophils # 0.2 10^3/uL (0.0-0.8); Eosinophils % 2.4 %; Hemoglobin 15.9 g/dL (11.7-16.6); Lymphocytes # 1.9 10^3/uL (0.8-4.8); Lymphocytes % 20.8 %; Mean Corpuscular HGB Conc 33.1 g/dL (30.0-36.0); Mean Corpuscular Hemoglobin 30.5 pg (28.0-34.0); Mean Corpuscular Volume 92.1 fl (80-94); Mean Platelet Volume 9.9 fL (7.4-10.4); Monocytes # 0.9 10^3/uL (0.2-0.9); Monocytes % 9.3 %; Neutrophils # 6.07 10^3/uL (1.8-7.7); Neutrophils % 66.8 %; Nucleated Red Blood Cells % 0 %; Platelet Count 312 10^3/cmm (130-400); Red Blood Count 5.21 10^6/uL (4.1-5.3); Red Cell Distribution Width 12.6 % (12.1-15.1); White Blood Count 9.1 10^3/uL (4.0-10.0)
[2022-05-04 12:42] LABS: Erythrocyte Sedimentation Rate 7 mm/hr (0-10)
[2022-05-04 13:01] LABS: Alanine Aminotransferase 24 U/L (0-41); Albumin Level 4.3 g/dL (3.5-5.2); Alkaline Phosphatase 92 U/L (40-130); Aspartate Amino Transferase 20 U/L (0-40); Globulin 3.3 g/dL (1.3-4.6); Glomerular Filtration Rate 76.7 mL/min (90-130); Total Bilirubin 0.6 mg/dL (0.15-1.2); Total Protein 7.6 g/dL (6.6-8.7)
[2022-05-04 13:02] VITALS: BP 120/77; PULSE 108; RESP 18; TEMP 37.1; O2SAT 96
[2022-05-04] MEDS: sodium chloride 0.9% 250 ML 50 ML IV (13:13)
[2022-05-04] MEDS: acetaminophen 325 mg Tablet 650 MG PO (13:14)
[2022-05-04] MEDS: diphenhydrAMINE 50 mg/mL SDV 1mL 25 MG IVP (13:15)
[2022-05-04 14:37] VITALS: BP 131/79; PULSE 97; RESP 16; TEMP 36.8; O2SAT 98
== END 2022-05-04 11:34 | disposition home or self-care (01) ==
LOC: ONCMED 11:33
PROVIDERS: PCP Nurse Practitioner; Visit Provider Internal Medicine Rheumatology
DX: M05.79 Rheumatoid arthritis with rheumatoid factor of multiple sites without organ or systems involvement (principal); Z79.899 Other long term (current) drug therapy
CPT/HCPCS: 80076; 82565; 85025; 85651; 96365; 96375; J1200; J2920; J3262; J7050

== ENCOUNTER → 2022-05-06 09:24 | Outpatient (BNVA) | payer MEDICAID, SELFPAY | PROVIDERS: PCP Nurse Practitioner; Visit Provider Internal Medicine Rheumatology | DX: M05.79 Rheumatoid arthritis with rheumatoid factor of multiple sites without organ or systems involvement (principal); Z79.899 Other long term (current) drug therapy; Z71.89 Other specified counseling | CPT/HCPCS: 99214 ==

== ENCOUNTER 2022-06-23 10:02 | Oncology outpatient (recurring) (ONCR) | payer MEDICAID, SELFPAY ==
[2022-06-23 10:30] VITALS: BP 120/78; PULSE 90; TEMP 36.8; O2SAT 97
[2022-06-23] MEDS: acetaminophen 325 mg Tablet 650 MG PO (10:38)
[2022-06-23 10:40] LABS: Basophils % 0.6 %; Eosinophils # 0.3 10^3/uL (0.0-0.8); Eosinophils % 3.7 %; Hematocrit 44.6 % (42.0-52.0); Lymphocytes # 1.7 10^3/uL (0.8-4.8); Lymphocytes % 24.7 %; Mean Corpuscular HGB Conc 33.6 g/dL (30.0-36.0); Mean Corpuscular Hemoglobin 30.5 pg (28.0-34.0); Mean Corpuscular Volume 90.7 fl (80-94); Monocytes # 0.9 10^3/uL (0.2-0.9); Monocytes % 12.3 %; Neutrophils # 4.08 10^3/uL (1.8-7.7); Neutrophils % 58.4 %; Nucleated Red Blood Cells % 0 %; Platelet Count 319 10^3/cmm (130-400); Red Blood Count 4.92 10^6/uL (4.1-5.3); Red Cell Distribution Width 12.1 % (12.1-15.1)
[2022-06-23] MEDS: diphenhydrAMINE 50 mg/mL SDV 1mL 25 MG IVP (10:40)
[2022-06-23] MEDS: sodium chloride 0.9% 250 ML 100 ML IV (10:41)
[2022-06-23 11:00] LABS: Erythrocyte Sedimentation Rate 19 mm/hr (0-10)
[2022-06-23] MEDS: tocilizumab 400 MG, tocilizumab 200 MG, tocilizumab 70 MG in sodium chloride 0.9% (100 ... 133.5 MG IV (11:02)
[2022-06-23 11:05] LABS: Alanine Aminotransferase 21 U/L (0-41); Albumin Level 4.4 g/dL (3.5-5.2); Alkaline Phosphatase 108 U/L (40-130); Aspartate Amino Transferase 20 U/L (0-40); Globulin 3.8 g/dL (1.3-4.6); Glomerular Filtration Rate 68.8 mL/min (90-130); Total Bilirubin 0.4 mg/dL (0.15-1.2); Total Protein 8.2 g/dL (6.6-8.7)
[2022-06-23 12:14] VITALS: BP 120/78; PULSE 90; TEMP 36.8; O2SAT 97
== END 2022-06-26 23:59 | disposition home or self-care (01) ==
PROVIDERS: PCP Nurse Practitioner; Visit Provider Internal Medicine Rheumatology
DX: Z51.12 Encounter for antineoplastic immunotherapy (principal); M05.79 Rheumatoid arthritis with rheumatoid factor of multiple sites without organ or systems involvement; Z79.899 Other long term (current) drug therapy
CPT/HCPCS: 80076; 82565; 85025; 85651; 96365; 96375; J1200; J2920; J3262; J7050

== ENCOUNTER 2022-07-21 09:00 | Oncology outpatient (recurring) (ONCR) | payer MEDICAID, SELFPAY ==
[2022-07-21 09:09] VITALS: BP 120/72; PULSE 95; TEMP 37.1
[2022-07-21] MEDS: acetaminophen 325 mg Tablet 650 MG PO (09:34)
[2022-07-21] MEDS: sodium chloride 0.9% 250 ML 100 ML IV (09:34)
[2022-07-21] MEDS: diphenhydrAMINE 50 mg/mL SDV 1mL 25 MG IVP (09:35)
[2022-07-21] MEDS: tocilizumab 400 MG, tocilizumab 200 MG, tocilizumab 70 MG in sodium chloride 0.9% (100 ... 133.5 MG IV (10:01)
[2022-07-21 11:07] VITALS: BP 136/84; PULSE 86; TEMP 37.2
== END 2022-07-26 23:59 | disposition home or self-care (01) ==
LOC: ONCMED 09:01
PROVIDERS: PCP Nurse Practitioner; Visit Provider Internal Medicine Rheumatology
DX: M05.9 Rheumatoid arthritis with rheumatoid factor, unspecified (principal)
CPT/HCPCS: 96361; 96365; 96375; 96413; J1200; J2920; J3262; J7050

== ENCOUNTER → 2022-08-05 10:14 | Outpatient (BNVA) | payer MEDICAID, SELFPAY | PROVIDERS: PCP Nurse Practitioner; Visit Provider Internal Medicine Rheumatology | DX: M05.79 Rheumatoid arthritis with rheumatoid factor of multiple sites without organ or systems involvement (principal); Z71.89 Other specified counseling; Z79.899 Other long term (current) drug therapy | CPT/HCPCS: 99214 ==

== ENCOUNTER 2022-08-25 09:25 | Oncology outpatient (recurring) (ONCR) | payer MEDICAID, SELFPAY ==
[2022-08-25 10:05] LABS: Basophils % 0.6 %; Eosinophils # 0.3 10^3/uL (0.0-0.8); Eosinophils % 4.4 %; Hematocrit 46.3 % (42.0-52.0); Hemoglobin 15.4 g/dL (11.7-16.6); Lymphocytes # 1.9 10^3/uL (0.8-4.8); Lymphocytes % 26.2 %; Mean Corpuscular HGB Conc 33.3 g/dL (30.0-36.0); Mean Corpuscular Hemoglobin 29.8 pg (28.0-34.0); Mean Corpuscular Volume 89.6 fl (80-94); Mean Platelet Volume 10.4 fL (7.4-10.4); Monocytes # 1.1 10^3/uL (0.2-0.9); Monocytes % 15.1 %; Neutrophils # 3.79 10^3/uL (1.8-7.7); Neutrophils % 53.6 %; Nucleated Red Blood Cells % 0 %; Platelet Count 246 10^3/cmm (130-400); Red Blood Count 5.17 10^6/uL (4.1-5.3); Red Cell Distribution Width 12.9 % (12.1-15.1); White Blood Count 7.1 10^3/uL (4.0-10.0)
[2022-08-25 10:22] LABS: Alanine Aminotransferase 42 U/L (0-41); Albumin Level 4.3 g/dL (3.5-5.2); Alkaline Phosphatase 100 U/L (40-130); Aspartate Amino Transferase 24 U/L (0-40); Globulin 3.1 g/dL (1.3-4.6); Glomerular Filtration Rate 86.7 mL/min (90-130); Total Bilirubin 0.7 mg/dL (0.15-1.2); Total Protein 7.4 g/dL (6.6-8.7)
[2022-08-25] MEDS: diphenhydrAMINE 50 mg/mL SDV 1mL 25 MG IVP (10:39)
[2022-08-25] MEDS: sodium chloride 0.9% 250 ML 75 ML IV (10:39)
[2022-08-25] MEDS: acetaminophen 325 mg Tablet 650 MG PO (10:40)
[2022-08-25] MEDS: dexamethasone 10 mg/mL INJ 6 MG IVP (10:46)
[2022-08-25] MEDS: tocilizumab 400 MG, tocilizumab 200 MG, tocilizumab 60 MG in sodium chloride 0.9% (100 ... 133 MG IV (11:03)
[2022-08-25 12:10] VITALS: BP 130/82; PULSE 85; TEMP 36.5; O2SAT 95
== END 2022-08-26 23:59 | disposition home or self-care (01) ==
PROVIDERS: PCP Nurse Practitioner; Visit Provider Internal Medicine Rheumatology
DX: M05.79 Rheumatoid arthritis with rheumatoid factor of multiple sites without organ or systems involvement (principal); Z79.899 Other long term (current) drug therapy
CPT/HCPCS: 80076; 82565; 85025; 86140; 96365; 96375; J1100; J1200; J3262; J7050

== ENCOUNTER 2022-09-22 10:02 | Oncology outpatient (recurring) (ONCR) | payer MEDICAID, SELFPAY ==
[2022-09-15 10:05] VITALS: BMI 25.9
[2022-09-15 10:07] VITALS: BP 128/79; PULSE 95; RESP 18; TEMP 36.7; O2SAT 96
[2022-09-22] MEDS: acetaminophen 325 mg Tablet 650 MG PO (11:35)
[2022-09-22] MEDS: sodium chloride 0.9% 250 ML 75 ML IV (11:39)
[2022-09-22 11:45] VITALS: BP 119/84; PULSE 89; RESP 18; TEMP 36.2; O2SAT 95
[2022-09-22] MEDS: diphenhydrAMINE 50 mg/mL SDV 1mL 25 MG IVP (11:46)
[2022-09-22] MEDS: dexamethasone 10 mg/mL INJ 6 MG IVP (11:54)
[2022-09-22] MEDS: tocilizumab 400 MG, tocilizumab 200 MG, tocilizumab 80 MG in sodium chloride 0.9% (100 ... 134 MG IV (12:36)
[2022-09-22 13:58] VITALS: BP 118/73; PULSE 18; RESP 86; TEMP 36.2; O2SAT 97
== END 2022-09-25 23:59 | disposition home or self-care (01) ==
PROVIDERS: PCP Nurse Practitioner; Visit Provider Internal Medicine Rheumatology
DX: M05.9 Rheumatoid arthritis with rheumatoid factor, unspecified (principal)
CPT/HCPCS: 96365; 96375; J1100; J1200; J3262; J7050

== ENCOUNTER 2022-10-20 10:17 | Oncology outpatient (recurring) (ONCR) | payer MEDICAID, SELFPAY ==
[2022-10-20 10:10] VITALS: BP 134/90; PULSE 90; RESP 16; TEMP 36.9; O2SAT 97
[2022-10-20] MEDS: sodium chloride 0.9% 250 ML 75 ML IV (11:00)
[2022-10-20] MEDS: diphenhydrAMINE 50 mg/mL SDV 1mL 25 MG IVP (11:01)
[2022-10-20] MEDS: acetaminophen 325 mg Tablet 650 MG PO (11:01)
[2022-10-20] MEDS: methylPREDNISolone sod succ 40 mg SDV IVP (11:02)
[2022-10-20] MEDS: tocilizumab 400 MG, tocilizumab 200 MG, tocilizumab 80 MG in sodium chloride 0.9% (100 ... 134 MG IV (11:33)
[2022-10-20 12:45] VITALS: BP 118/86; PULSE 88; RESP 16; TEMP 36.7; O2SAT 97
== END 2022-10-26 23:59 | disposition home or self-care (01) ==
PROVIDERS: PCP Nurse Practitioner; Visit Provider Internal Medicine Rheumatology
DX: M05.9 Rheumatoid arthritis with rheumatoid factor, unspecified (principal)
CPT/HCPCS: 96375; 96413; J1200; J2920; J3262; J7050

== ENCOUNTER → 2022-11-04 09:00 | Outpatient (BNVA) | payer MEDICAID, SELFPAY | PROVIDERS: PCP Nurse Practitioner; Visit Provider Internal Medicine Rheumatology | DX: M05.79 Rheumatoid arthritis with rheumatoid factor of multiple sites without organ or systems involvement (principal); Z71.89 Other specified counseling; Z79.899 Other long term (current) drug therapy | CPT/HCPCS: 99214 ==

== ENCOUNTER → 2023-02-10 09:04 | Outpatient (BNVA) | payer MEDICAID, SELFPAY | PROVIDERS: PCP Nurse Practitioner; Visit Provider Internal Medicine Rheumatology | DX: Z79.899 Other long term (current) drug therapy (principal); M05.79 Rheumatoid arthritis with rheumatoid factor of multiple sites without organ or systems involvement; Z71.89 Other specified counseling | CPT/HCPCS: 36415; 80076; 82565; 85025; 86140; 99214 ==

== ENCOUNTER → 2023-05-26 09:38 | Outpatient (BNVA) | payer MEDICAID, SELFPAY | PROVIDERS: PCP Nurse Practitioner; Visit Provider Internal Medicine Rheumatology | DX: M05.79 Rheumatoid arthritis with rheumatoid factor of multiple sites without organ or systems involvement (principal); Z79.899 Other long term (current) drug therapy; Z71.89 Other specified counseling | CPT/HCPCS: 99214 ==

== ENCOUNTER 2023-08-20 07:20 | Oncology outpatient (recurring) (ONCR) | payer MEDICAID, SELFPAY ==
[2023-08-20] VITALS (8 sets, daily range): BP systolic 114–133; BP diastolic 60–85; PULSE 65–87; RESP 16–17; TEMP 36.2–36.9; O2SAT 91–95
[2023-08-20 08:00] LABS: Basophils % 0.6 %; Eosinophils # 0.2 10^3/uL (0.0-0.8); Hematocrit 44.2 % (37-53); Lymphocytes # 1.5 10^3/uL (0.8-4.8); Lymphocytes % 28.3 %; Mean Corpuscular HGB Conc 32.8 g/dL (30-55); Mean Corpuscular Hemoglobin 29.4 pg (27-33); Mean Corpuscular Volume 89.5 fl (82-101); Mean Platelet Volume 10.9 fL (7.4-10.4); Monocytes # 0.6 10^3/uL (0.2-0.9); Monocytes % 10.2 %; Neutrophils # 3.14 10^3/uL (1.8-7.7); Neutrophils % 57.9 %; Nucleated Red Blood Cells % 0 %; Platelet Count 233 10^3/cmm (157-399); Red Blood Count 4.94 10^6/uL (3.85-5.65); White Blood Count 5.41 10^3/uL (3.29-11.43)
[2023-08-20] MEDS: sodium chloride 0.9% 250 ML 75 ML IV (08:11)
[2023-08-20] MEDS: acetaminophen 325 mg Tablet 650 MG PO (08:12)
[2023-08-20] MEDS: diphenhydrAMINE 50 mg/mL SDV 1mL 25 MG IVP (08:13)
[2023-08-20] MEDS: methylPREDNISolone sod succ 40 mg/mL INJ IVP (08:14)
[2023-08-20 08:17] LABS: Alanine Aminotransferase 36 U/L (0-41); Albumin Level 3.9 g/dL (3.5-5.2); Alkaline Phosphatase 120 U/L (40-130); Creatinine Clr Calc Pharmacy 88.5893; Globulin 3.9 g/dL (1.3-4.6); Glomerular Filtration Rate 76.5 mL/min (90-130); Total Bilirubin 0.2 mg/dL (0.15-1.2); Total Protein 7.8 g/dL (6.6-8.7)
[2023-08-20 08:19] LABS: Aspartate Amino Transferase 29 U/L (0-40)
[2023-08-20] MEDS: SODIUM CHLORIDE 0.9% IV (08:56)
[2023-08-20] MEDS: INFLIXIMAB ABDA IV (08:56)
== END 2023-08-27 23:59 | disposition home or self-care (01) ==
PROVIDERS: PCP Nurse Practitioner; Visit Provider Internal Medicine Rheumatology
DX: M05.9 Rheumatoid arthritis with rheumatoid factor, unspecified (principal); Z79.620 Long term (current) use of immunosuppressive biologic; Z79.899 Other long term (current) drug therapy
CPT/HCPCS: 80076; 82565; 85025; 86140; 96375; 96413; 96415; A4222; J1200; J2919; J7050; Q5104

== ENCOUNTER → 2023-09-01 12:46 | Outpatient (BNVA) | payer MEDICAID, SELFPAY | PROVIDERS: PCP Nurse Practitioner; Referring Provider Nurse Practitioner; Visit Provider Internal Medicine | DX: R07.9 Chest pain, unspecified (principal); I45.10 Unspecified right bundle-branch block; I44.4 Left anterior fascicular block; R00.2 Palpitations; R06.09 Other forms of dyspnea | CPT/HCPCS: 93005; 99204 ==

== ENCOUNTER 2023-09-03 07:30 | Oncology outpatient (recurring) (ONCR) | payer MEDICAID, SELFPAY ==
[2023-09-03] VITALS (8 sets, daily range): BP systolic 117–129; BP diastolic 73–84; PULSE 60–79; RESP 16; TEMP 36.1–36.6; O2SAT 95–97
[2023-09-03] MEDS: acetaminophen 325 mg Tablet 650 MG PO (08:16)
[2023-09-03] MEDS: methylPREDNISolone sod succ 40 mg/mL INJ IVP (08:16)
[2023-09-03] MEDS: sodium chloride 0.9% 250 ML 75 ML IV (08:16)
[2023-09-03] MEDS: diphenhydrAMINE 50 mg/mL SDV 1mL 25 MG IVP (08:24)
[2023-09-03] MEDS: SODIUM CHLORIDE 0.9% IV (09:00)
[2023-09-03] MEDS: INFLIXIMAB ABDA IV (09:00)
== END 2023-09-26 23:59 | disposition home or self-care (01) ==
PROVIDERS: PCP Nurse Practitioner; Visit Provider Internal Medicine Rheumatology
DX: M05.9 Rheumatoid arthritis with rheumatoid factor, unspecified (principal)
CPT/HCPCS: 96375; 96413; 96415; A4222; J1200; J2919; J7050; Q5104

== ENCOUNTER 2023-09-22 07:39 | Outpatient (CLI) | payer MEDICAID, SELFPAY ==
[2023-09-22 08:01] VITALS: BMI 25.5
--- NOTE | 2023-09-22 08:12 | ECG_ITS ---
[facility] Test Date: 2023-09-22 Pat Name: Thuan Bowman Department: Room: Gender: Male Medical Driver: : 1965 Requested By: Cory Figueroa Order Number: [id number] Gates MD: Monique Solorzano M.D. Interpretive Statements NAME OF STUDY: LEXISCAN SESTAMIBI STRESS TEST INDICATION: Chest Pain; Shortness of Breath RESULTS TO DR FIGUEROA PROCEDURE: At the baseline, the EKG revealed normal sinus rhythm with right bundle branch block pattern. Left anterior fascicular block and nonspecific T wave changes. The baseline heart was 84 bpm with a blood pressue of 138/95 mm of Hg Lexiscan was infused over a period of 20 seconds. A total of 0.4 milligrams of Lexiscan was infused. The stress phase was continued for a total of 5 minutes. Heart rate at the end of the stress phase was 93 bpm with a blood pressure 120/87 mm of Hg. The EKG at the peak infusion revealed no significant changes. Sestamibi was injected 20 seconds after the Lexiscan infusion. Heart rate at the end of the recovery phase was 88 bpm with a blood pressure of 130/82 mm of Hg. CONCLUSION: 1. No significant EKG changes with the LexiScan infusion 2. No LexiScan induced chest pain or cardiac arrhythmia 3. Normal blood pressure and heart rate response 4. Sestamibi/sestamibi perfusion scan pending; see separate report. Electronically Signed On 09-25-2023 14:43:17 CDT by Monique Solorzano M.D. [id number]
--- NOTE | 2023-09-22 08:13 | NMCV_ITS ---
NM karl perf SPECT r/s* [id number] Strain, Thuan Age: 57 Gender: M : 1965 Exam Date: 09/22/2023 08:18 Ordering Phys: Cory Figueroa M.D ([email or web address]) Technologist: JOSE LUIS Santos Exam Location: [facility] Indications: CP and SOB STRESS TEST [facility] IMAGE PROTOCOL Rest/Stress 1 Day Radiopharmaceutical Dose (mCi) Administration Site Administered by Rest: Tc-99m 10.9 IV JOSE LUIS Santos Sestamibi Stress:Tc-99m 32.9 IV JOSE LUIS Santos Sestamibi Rest: 22-Sep-2023 60 Discovery 630 Stress: 22-Sep-2023 30 Discovery 630 0.4mg Lexiscan. Supine position only as patient was unable to lay prone. SPECT RESULTS Technical Quality: Good Raw Data Analysis: Normal Image Corrections: No attenuation or motion correction applied Summed Stress Score: 0 Summed Rest Score: 0 Summed Difference Score: 0 PERFUSION FINDINGS Uniform myocardial tracer uptake with no significant perfusion abnormalities FUNCTIONAL RESULTS (calculated via Gated SPECT) Stress Image LV EF (%): 66 Stress EDV (mL):103 TID: 1.1 Stress ESV (mL):35 FUNCTIONAL FINDINGS: Segmental wall motion analysis revealing no gross wall motion abnormalities IMPRESSIONS 1. Myocardial perfusion imaging revealing uniform myocardial tracer uptake with no significant perfusion abnormalities 1. Normal LV ejection fraction of 66%. 3. LV wall motion analysis revealing no gross wall motion abnormalities. 4. Normal LV volume Low probability for coronary ischemia, based on the above findings No similar previous studies are available for comparison Dr Monique Solorzano MD [facility] (Electronically Signed) Final Date: 22 September 2023 14:08 S
[2023-09-22] MEDS: regadenoson 0.4 Mg/5 ml Syringe 0.400000000000000022 MG IVP (09:27)
[2023-09-22 10:12] VITALS: BP 126/87; PULSE 78
== END 2023-09-22 07:40 | disposition home or self-care (01) ==
PROVIDERS: PCP Nurse Practitioner; Visit Provider Internal Medicine
DX: R07.9 Chest pain, unspecified (principal); R06.02 Shortness of breath
CPT/HCPCS: 36415; 78452; 93017; 93306; 96374; A9500; J2785

== ENCOUNTER 2023-10-08 07:29 | Oncology outpatient (recurring) (ONCR) | payer MEDICAID, SELFPAY ==
[2023-10-08] VITALS (7 sets, daily range): BP systolic 100–133; BP diastolic 54–83; PULSE 74–82; RESP 16–17; TEMP 36.6–37.1; O2SAT 92–97
[2023-10-08 08:01] LABS: Basophils % 0.5 %; Eosinophils # 0.2 10^3/uL (0.0-0.8); Eosinophils % 2.5 %; Hematocrit 42.5 % (37-53); Lymphocytes % 25.6 %; Mean Corpuscular HGB Conc 32.9 g/dL (30-55); Mean Corpuscular Hemoglobin 29.9 pg (27-33); Mean Corpuscular Volume 90.8 fl (82-101); Mean Platelet Volume 10.6 fL (7.4-10.4); Monocytes # 1.1 10^3/uL (0.2-0.9); Monocytes % 14.8 %; Neutrophils % 56.2 %; Nucleated Red Blood Cells % 0 %; Platelet Count 284 10^3/cmm (157-399); Red Blood Count 4.68 10^6/uL (3.85-5.65); Red Cell Distribution Width 13.5 % (12.1-15.1); White Blood Count 7.65 10^3/uL (3.29-11.43)
[2023-10-08] MEDS: sodium chloride 0.9% 250 ML 75 ML IV (08:10)
[2023-10-08] MEDS: methylPREDNISolone sod succ 40 mg/mL INJ IVP (08:12)
[2023-10-08] MEDS: acetaminophen 325 mg Tablet 650 MG PO (08:18)
[2023-10-08] MEDS: diphenhydrAMINE 50 mg/mL SDV 1mL 25 MG IVP (08:19)
[2023-10-08 08:23] LABS: C Reactive Protein 7.7 mg/L (0.0-4.9)
[2023-10-08 08:37] LABS: Alanine Aminotransferase 26 U/L (0-41); Albumin Level 3.9 g/dL (3.5-5.2); Alkaline Phosphatase 97 U/L (40-130); Globulin 3.9 g/dL (1.3-4.6); Total Bilirubin 0.4 mg/dL (0.15-1.2); Total Protein 7.8 g/dL (6.6-8.7)
[2023-10-08] MEDS: INFLIXIMAB ABDA IV (08:48)
[2023-10-08] MEDS: SODIUM CHLORIDE 0.9% IV (08:48)
[2023-10-08 08:49] LABS: Aspartate Amino Transferase 22 U/L (0-40)
== END 2023-10-27 23:59 | disposition home or self-care (01) ==
PROVIDERS: PCP Nurse Practitioner; Visit Provider Internal Medicine Rheumatology
DX: M05.79 Rheumatoid arthritis with rheumatoid factor of multiple sites without organ or systems involvement (principal)
CPT/HCPCS: 80076; 85025; 86140; 96375; 96413; 96415; A4222; J1200; J2919; J7050; Q5104

== ENCOUNTER → 2023-10-27 10:16 | Outpatient (BNVA) | payer MEDICAID, SELFPAY | PROVIDERS: PCP Nurse Practitioner; Visit Provider Internal Medicine Rheumatology | DX: M05.79 Rheumatoid arthritis with rheumatoid factor of multiple sites without organ or systems involvement (principal); Z71.85 Encounter for immunization safety counseling; Z79.899 Other long term (current) drug therapy | CPT/HCPCS: 99214 ==

== ENCOUNTER → 2023-11-10 12:48 | Outpatient (BNVA) | payer MEDICAID, SELFPAY | PROVIDERS: PCP Nurse Practitioner; Visit Provider Internal Medicine | DX: R00.2 Palpitations (principal); R06.09 Other forms of dyspnea; F17.220 Nicotine dependence, chewing tobacco, uncomplicated | CPT/HCPCS: 99214 ==

== ENCOUNTER 2023-11-25 13:34 | Outpatient (CLI) | payer MEDICAID, SELFPAY ==
--- NOTE | 2023-11-25 13:39 | CT_ITS ---
WS: [id number] CT CHEST ANGIOGRAPHY WITH REFORMATS HISTORY: ABNORMAL FINDING ON DIAGNOSTIC IMAGING TECHNIQUE: Contiguous axial images are obtained through the chest during arterial injection of intrav enous contrast. Images are reconstructed to evaluate the pulmonary arteries. MIP imaging also reviewe d. All CT scans at [facility] use at least one of these dose optimization techniques: automat ed exposure control; mA and/or kV adjustment per patient size (includes targeted exams where dose is matched to clinical indication); or iterative reconstruction. CONTRAST: Omnipaque 350; 100 mL IV. DLP: 417.71 mGy COMPARISON: None available. Good opacification of the pulmonary arteries. No central pulmonary embolism. Pulmonary emboli are not ed within the RIGHT lower lobe segmental branches extending into subsegmental branches. Nearly occlus misti emboli in several of the arteries. No additional emboli are identified. Mild atherosclerosis aort a. Small mediastinal and hilar lymph nodes. Size of these lymph nodes is small. Some of these lymph n odes are calcified suggesting they are benign. Heart size is normal. No pericardial or pleural effusi ons. Small micronodules. No suspicious mass or nodules or pneumonia identified. Prior cholecystectomy. No adrenal mass. Small hiatal hernia. Increase in the thoracic kyphosis. CT/CT angio chest [id number] IMPRESSION: 1. Nearly occlusive RIGHT lower lobe pulmonary artery segmental and subsegment al pulmonary emboli. 2. No pneumonia. 3. Mild atherosclerosis aorta. 4. Small mediastinal and hilar lymph nodes. Notified NELSON Sam at 11/25/2023 2:53 PM. Discussed with Angella at nurs e practitioner's office.
[2023-11-25] MEDS: iohexol 350 mg/mL 500 mL Btl (per mL) IV (14:04)
== END 2023-11-25 13:35 | disposition home or self-care (01) ==
LOC: RAD 13:34
PROVIDERS: PCP Nurse Practitioner; Visit Provider Nurse Practitioner
DX: I26.99 Other pulmonary embolism without acute cor pulmonale (principal); K44.9 Diaphragmatic hernia without obstruction or gangrene; M40.204 Unspecified kyphosis, thoracic region; R93.89 Abnormal findings on diagnostic imaging of other specified body structures; Z90.49 Acquired absence of other specified parts of digestive tract
CPT/HCPCS: 71275; Q9967

== ENCOUNTER 2023-11-25 18:56 | Emergency (ER) | payer MEDICAID, SELFPAY ==
[2023-11-25 19:03] VITALS: BP 147/98; PULSE 78; RESP 16; TEMP 36.7; O2SAT 98; BMI 25.4
--- NOTE | 2023-11-25 19:32 | ED_ITS ---
HPI - Recheck/Abnormal Lab/Rx General: Chief Complaint: Recheck/Abnormal Lab/Rx Stated Complaint: Lung issues, Sent by Time Seen by Provider: 11/25/23 19:16 History of Present Illness: Patient presents Emergency Department with complaint of mild shortness of breath. Had a outpatient CTA performed that showed a pulmonary embolism in the right lung. Patient denies having any chest pain. States his only complaint is of some mild shortness of breath over the last several weeks. Related Data Home Medications Medication Instructions Recorded Confirmed pantoprazole 20 mg tablet,delayed 20 mg PO QAM 04/07/19 11/10/23 release lisinopril 10 mg tablet 10 mg PO DAILY 07/08/21 11/10/23 rosuvastatin 10 mg tablet 10 mg PO DAILY 02/10/23 11/10/23 gabapentin 100 mg capsule 200 mg PO .HS 05/26/23 11/10/23 ergocalciferol (vitamin D2) 1,250 1,250 mcg PO .weekly 09/01/23 11/10/23 mcg (50,000 unit) capsule folic acid 1 mg tablet 1 mg PO DAILY 09/01/23 11/10/23 metoprolol succinate 25 mg 25 mg PO DAILY 09/01/23 11/10/23 tablet,extended release 24 hr baclofen 10 mg tablet 10 mg PO DAILY 11/10/23 11/10/23 methocarbamol 750 mg tablet 750 mg PO BID 11/10/23 11/10/23 Previous Rx's Medication Instructions Recorded leflunomide 20 mg tablet 20 mg PO DAILY #90 tabs 10/27/23 apixaban 5 mg tablet (Eliquis) 5 mg PO BID #74 tabs 11/25/23 Allergies Allergy/AdvReac Type Severity Reaction Status Date / Time Sulfa (Sulfonamide Allergy NAUSEA,DIAR Verified 11/10/23 13:22 Antibiotics) NORMA,VOMITI NG methotrexate AdvReac Intermediate nausea Verified 11/10/23 13:22 diarrhea PFSH ED PFSH: Medical History High risk medication use Immunization counseling Rheumatoid arthritis with rheumatoid factor Surgical History Previous back surgery History of cholecystectomy Family History Other Family history of premature coronary artery disease Heart attack Denies family history of Rheumatoid arthritis Diabetes Lupus Hypertension Social History Smoking and tobacco/nicotine status: current every day tobacco/nicotine user (chew) cigarettes and smokeless tobacco Alcohol intake: current Alcohol intake frequency: holidays/special occasions only Substance/Drug Use: never Marital status: Physical Exam Const: COMMON NORMALS: no acute distress, average body habitus, patient oriented x3, no limitations, healthy appearing, alert and well nourished Neck/C-Spine: COMMON NORMALS: no JVD Resp: COMMON NORMALS: normal respiratory effort, No retractions, No use of accessory muscles, clear to auscultation bilaterally and percussion normal AUSCULTATION: clear to auscultation bilaterally PERCUSSION: percussion normal Cardio: COMMON NORMALS: no JVD, regular rate, regular rhythm, S1 normal heart sound present, S2 normal heart sound present, No gallops present (Cardio), No clicks present (Cardio), No murmurs present (Cardio), No rub (Cardio) and Peripheral pulses 2+ throughout RATE: regular rate RHYTHM: regular rhythm HEART SOUNDS: S1 normal heart sound present and S2 normal heart sound present PERIPHERAL PULSES: Peripheral pulses 2+ throughout Neuro: COMMON NORMALS: patient oriented x3 SENSORIUM/ORIENTATION: Yes alert Course Vital Signs: Vital signs: Vital Signs Temperature 98.0 F 11/25/23 19:03 Pulse Rate 78 11/25/23 19:03 Respiratory Rate 16 11/25/23 19:03 Blood Pressure 147/98 11/25/23 19:03 Pulse Oximetry 98 11/25/23 19:03 Oxygen Delivery Me thod Room Air 11/25/23 19:03 MDM - Recheck/Abnormal Lab/Rx Medical Decision Making Patient presents with pulmonary embolism was found on outpatient CTA of the chest. Has mild shortness of breath but patient is not hypoxic or tachycardic. Is not tachypneic. Has no chest pain. Denies any indication for further workup other than treatment of his pulmonary embolism. Given subcutaneous Lovenox here and will discharge home with p.o. Eliquis. No radiology studies performed this visit Discharge Plan Discharge Patient Disposition: Home Clinical Impression: Pulmonary embolism Condition: Stable Prescriptions: New Eliquis 5 mg tablet 5 mg PO BID Qty: 74 0RF Rx Instructions: 2 tab po bid x 7 days then 1 tab po bid No Action lisinopril 10 mg tablet 10 mg PO DAILY pantoprazole 20 mg tablet,delayed release (DR/EC) 20 mg PO QAM rosuvastatin 10 mg tablet 10 mg PO DAILY gabapentin 100 mg capsule 200 mg PO .HS leflunomide 20 mg tablet 20 mg PO DAILY Qty: 90 1RF folic acid 1 mg tablet 1 mg PO DAILY metoprolol succinate 25 mg tablet extended release 24 hr 25 mg PO DAILY ergocalciferol (vitamin D2) 1,250 mcg (50,000 unit) capsule 1,250 mcg PO .weekly methocarbamol 750 mg tablet 750 mg PO BID baclofen 10 mg tablet 10 mg PO DAILY Discharge Orders: Discharge ED (Routine); Ordered 11/25/23 Ordered By: Kiko Palacios Referrals: Sunil Damon FNP [Primary Care Provider] - Patient Instructions: Opioid Safety, Pain Management Activity Restrictions/Additional Instructions: Follow-up with your primary care physician for further refills of your blood thinner. Coding Level of Care Code ED Director Of Supply Chain for Leyla Reynolds
[2023-11-25 19:36] VITALS: BP 124/84; PULSE 77; RESP 14; O2SAT 97
[2023-11-25] MEDS: enoxaparin 80 mg/0.8 mL Syringe SUBCUT (19:44)
[2023-11-25 19:54] VITALS: BP 139/88; PULSE 75; RESP 15; O2SAT 95
== END 2023-11-25 19:59 | disposition home or self-care (01) ==
PROVIDERS: Emergency Provider Emergency Medicine; PCP Nurse Practitioner
DX: I26.99 Other pulmonary embolism without acute cor pulmonale (principal); F17.220 Nicotine dependence, chewing tobacco, uncomplicated
CPT/HCPCS: 96372; 99284; J1650

== ENCOUNTER 2023-12-10 07:31 | Oncology outpatient (recurring) (ONCR) | payer MEDICAID, SELFPAY ==
[2023-12-10] VITALS (7 sets, daily range): BP systolic 112–125; BP diastolic 70–79; PULSE 64–92; RESP 16–17; TEMP 36.6–37.1; O2SAT 92–99
[2023-12-10] MEDS: diphenhydrAMINE 50 mg/mL SDV 1mL 25 MG IVP ×2 (08:10→08:11)
[2023-12-10] MEDS: methylPREDNISolone sod succ 40 mg/mL INJ IVP (08:17)
[2023-12-10] MEDS: acetaminophen 325 mg Tablet 650 MG PO (08:35)
[2023-12-10] MEDS: infliximab-abda 400 MG in sodium chloride 0.9% 250 ML 10 MG IV (08:42)
== END 2023-12-27 23:59 | disposition home or self-care (01) ==
PROVIDERS: PCP Nurse Practitioner; Visit Provider Internal Medicine Rheumatology
DX: M05.79 Rheumatoid arthritis with rheumatoid factor of multiple sites without organ or systems involvement (principal); Z79.899 Other long term (current) drug therapy
CPT/HCPCS: 96375; 96413; 96415; A4222; J1200; J2919; J7050; Q5104

== ENCOUNTER → 2023-12-23 10:40 | Outpatient (BNVA) | payer MEDICAID, SELFPAY | PROVIDERS: PCP Nurse Practitioner; Visit Provider Surgery | DX: R22.2 Localized swelling, mass and lump, trunk (principal) | CPT/HCPCS: 99204 ==

== ENCOUNTER 2024-01-28 07:36 | Oncology outpatient (recurring) (ONCR) | payer MEDICAID, SELFPAY ==
[2024-01-28] MEDS: diphenhydrAMINE 50 mg/mL SDV 1mL 25 MG IVP (08:05)
[2024-01-28] MEDS: acetaminophen 325 mg Tablet 650 MG PO (08:05)
[2024-01-28] MEDS: methylPREDNISolone sod succ 40 mg/mL INJ IVP (08:07)
[2024-01-28 08:21] LABS: Basophils % 0.2 %; Eosinophils % 0.7 %; Hematocrit 44.6 % (37-53); Lymphocytes % 17.1 %; Mean Corpuscular HGB Conc 32.3 g/dL (30-55); Mean Corpuscular Hemoglobin 29.2 pg (27-33); Mean Corpuscular Volume 90.5 fl (82-101); Mean Platelet Volume 10.5 fL (7.4-10.4); Monocytes # 0.3 10^3/uL (0.2-0.9); Neutrophils # 4.44 10^3/uL (1.8-7.7); Neutrophils % 76.8 %; Nucleated Red Blood Cells % 0 %; Platelet Count 287 10^3/cmm (157-399); Red Blood Count 4.93 10^6/uL (3.85-5.65); Red Cell Distribution Width 13.5 % (12.1-15.1); White Blood Count 5.78 10^3/uL (3.29-11.43)
[2024-01-28 08:25] LABS: Albumin Level 4.2 g/dL (3.5-5.2); Alkaline Phosphatase 104 U/L (40-130); Aspartate Amino Transferase 21 U/L (0-40); Creatinine Clr Calc Pharmacy 79.9079; Globulin 2.7 g/dL (1.3-4.6); Glomerular Filtration Rate 68.3 mL/min (90-130); Total Bilirubin 0.4 mg/dL (0.15-1.2); Total Protein 6.9 g/dL (6.6-8.7)
[2024-01-28 08:35] LABS: Alanine Aminotransferase 19 U/L (0-41)
[2024-01-28] MEDS: infliximab-abda 400 MG in sodium chloride 0.9% 250 ML 10 MG IV (08:36)
[2024-01-28 08:40] VITALS: BP 129/85; PULSE 81; RESP 16; TEMP 37; O2SAT 92
[2024-01-28 08:55] VITALS: BP 131/85; PULSE 77; RESP 17; TEMP 37; O2SAT 95
[2024-01-28 09:27] VITALS: BP 136/75; PULSE 80; RESP 16; TEMP 36.6; O2SAT 95
[2024-01-28 09:45] VITALS: BP 140/87; PULSE 82; RESP 18; TEMP 36.3; O2SAT 94
[2024-01-28 10:15] VITALS: BP 131/85; PULSE 83; RESP 17; TEMP 36.7; O2SAT 94
[2024-01-28 10:59] VITALS: BP 136/93; PULSE 77; RESP 16; TEMP 36.3; O2SAT 97
== END 2024-02-26 23:59 | disposition home or self-care (01) ==
PROVIDERS: PCP Nurse Practitioner; Visit Provider Internal Medicine Rheumatology
DX: Z79.899 Other long term (current) drug therapy; M05.79 Rheumatoid arthritis with rheumatoid factor of multiple sites without organ or systems involvement
CPT/HCPCS: 80076; 82565; 85025; 86140; 96375; 96413; 96415; A4222; J1200; J2919; J7050; Q5104

== ENCOUNTER → 2024-03-01 09:58 | Outpatient (BNVA) | payer MEDICAID, SELFPAY | PROVIDERS: PCP Nurse Practitioner; Visit Provider Internal Medicine Rheumatology | DX: M05.79 Rheumatoid arthritis with rheumatoid factor of multiple sites without organ or systems involvement (principal); Z71.89 Other specified counseling; Z79.899 Other long term (current) drug therapy | CPT/HCPCS: 99214 ==

== ENCOUNTER 2024-04-03 07:44 | Oncology outpatient (recurring) (ONCR) | payer MEDICAID, SELFPAY ==
[2024-04-03 07:57] VITALS: BP 160/99; PULSE 74; RESP 18; TEMP 36.6; O2SAT 94
[2024-04-03 08:13] LABS: Basophils # 0.1 10^3/uL (0.0-0.1); Eosinophils # 0.3 10^3/uL (0.0-0.8); Eosinophils % 4.3 %; Hematocrit 45.5 % (37-53); Lymphocytes # 1.7 10^3/uL (0.8-4.8); Lymphocytes % 26.8 %; Mean Corpuscular HGB Conc 32.5 g/dL (30-55); Mean Corpuscular Hemoglobin 28.6 pg (27-33); Mean Platelet Volume 10.4 fL (7.4-10.4); Monocytes % 16.2 %; Neutrophils # 3.25 10^3/uL (1.8-7.7); Neutrophils % 51.5 %; Nucleated Red Blood Cells % 0 %; Platelet Count 294 10^3/cmm (157-399); Red Blood Count 5.17 10^6/uL (3.85-5.65); Red Cell Distribution Width 13.2 % (12.1-15.1)
[2024-04-03] MEDS: diphenhydrAMINE 50 mg/mL SDV 1mL 25 MG IVP (08:18)
[2024-04-03] MEDS: sodium chloride 0.9% 250 ML 75 ML IV (08:18)
[2024-04-03] MEDS: acetaminophen 325 mg Tablet 650 MG PO (08:18)
[2024-04-03] MEDS: methylPREDNISolone sod succ 40 mg/mL INJ IVP (08:27)
[2024-04-03] MEDS: infliximab-abda 400 MG in sodium chloride 0.9% 250 ML 250 MG IV (09:18)
[2024-04-03 09:30] LABS: Alanine Aminotransferase 19 U/L (0-41); Albumin Level 3.7 g/dL (3.5-5.2); Alkaline Phosphatase 102 U/L (40-130); Aspartate Amino Transferase 21 U/L (0-40); C Reactive Protein 17.1 mg/L (0.0-4.9); Globulin 4.2 g/dL (1.3-4.6); Glomerular Filtration Rate 86.1 mL/min (90-130); Total Bilirubin 0.3 mg/dL (0.15-1.2); Total Protein 7.9 g/dL (6.6-8.7)
[2024-04-03 10:23] VITALS: BP 150/99; PULSE 78; RESP 17; O2SAT 97
== END 2024-04-28 23:59 | disposition home or self-care (01) ==
PROVIDERS: PCP Nurse Practitioner; Visit Provider Internal Medicine Rheumatology
DX: M05.79 Rheumatoid arthritis with rheumatoid factor of multiple sites without organ or systems involvement (principal); Z79.899 Other long term (current) drug therapy
CPT/HCPCS: 80076; 82565; 85025; 86140; 96375; 96413; A4222; J1200; J2919; J7050; Q5104

== ENCOUNTER 2024-05-15 07:47 | Oncology outpatient (recurring) (ONCR) | payer MEDICAID, SELFPAY ==
[2024-05-15 08:10] VITALS: BP 130/89; PULSE 84; TEMP 37.1
[2024-05-15] MEDS: acetaminophen 325 mg Tablet 650 MG PO (08:32)
[2024-05-15] MEDS: sodium chloride 0.9% 250 ML 75 ML IV (08:33)
[2024-05-15] MEDS: methylPREDNISolone sod succ 40 mg/mL INJ IVP (08:35)
[2024-05-15] MEDS: diphenhydrAMINE 50 mg/mL SDV 1mL 25 MG IVP (08:38)
[2024-05-15] MEDS: infliximab-abda 400 MG in sodium chloride 0.9% 250 ML 250 MG IV (09:01)
[2024-05-15 10:10] VITALS: BP 137/87; PULSE 75; RESP 16; TEMP 36.5; O2SAT 98
== END 2024-05-26 23:59 | disposition home or self-care (01) ==
PROVIDERS: PCP Nurse Practitioner; Visit Provider Internal Medicine Rheumatology
DX: M06.00 Rheumatoid arthritis without rheumatoid factor, unspecified site (principal); Z79.899 Other long term (current) drug therapy
CPT/HCPCS: 96375; 96413; A4222; J1200; J2919; J7050; Q5104

== ENCOUNTER 2024-06-26 07:52 | Oncology outpatient (recurring) (ONCR) | payer MEDICAID, SELFPAY ==
[2024-06-26 08:00] VITALS: BP 144/98; PULSE 90; RESP 18; TEMP 36.4; O2SAT 98
[2024-06-26] MEDS: diphenhydrAMINE 50 mg/mL SDV 1mL 25 MG IVP (08:23)
[2024-06-26] MEDS: sodium chloride 0.9% 250 ML 75 ML IV (08:23)
[2024-06-26] MEDS: acetaminophen 325 mg Tablet 650 MG PO (08:23)
[2024-06-26] MEDS: methylPREDNISolone sod succ 40 mg/mL INJ IVP (08:26)
[2024-06-26 08:35] LABS: Basophils % 0.8 %; Eosinophils # 0.2 10^3/uL (0.0-0.8); Eosinophils % 4.5 %; Hematocrit 47.3 % (37-53); Lymphocytes # 1.3 10^3/uL (0.8-4.8); Lymphocytes % 26.4 %; Mean Corpuscular HGB Conc 31.7 g/dL (30-55); Mean Corpuscular Hemoglobin 28.2 pg (27-33); Mean Corpuscular Volume 89.1 fl (82-101); Mean Platelet Volume 10.3 fL (7.4-10.4); Monocytes # 0.7 10^3/uL (0.2-0.9); Monocytes % 14.4 %; Neutrophils % 53.7 %; Nucleated Red Blood Cells % 0 %; Platelet Count 288 10^3/cmm (157-399); Red Blood Count 5.31 10^6/uL (3.85-5.65); White Blood Count 4.85 10^3/uL (3.29-11.43)
[2024-06-26] MEDS: infliximab-abda 400 MG in sodium chloride 0.9% 250 ML 250 MG IV (08:43)
[2024-06-26 08:56] LABS: Alanine Aminotransferase 18 U/L (0-41); Albumin Level 3.8 g/dL (3.5-5.2); Alkaline Phosphatase 108 U/L (40-130); Aspartate Amino Transferase 19 U/L (0-40); C Reactive Protein 3.8 mg/L (0.0-4.9); Globulin 3.8 g/dL (1.3-4.6); Glomerular Filtration Rate 76.2 mL/min (90-130); Total Bilirubin 0.4 mg/dL (0.15-1.2); Total Protein 7.6 g/dL (6.6-8.7)
[2024-06-26 10:08] VITALS: BP 134/92; PULSE 82; TEMP 36.7
== END 2024-06-26 23:59 | disposition home or self-care (01) ==
PROVIDERS: PCP Nurse Practitioner; Visit Provider Internal Medicine Rheumatology
DX: M06.00 Rheumatoid arthritis without rheumatoid factor, unspecified site (principal); Z79.899 Other long term (current) drug therapy
CPT/HCPCS: 80076; 82565; 85025; 86140; 96375; 96413; A4222; J1200; J2919; J7050; J9999; Q5104

== ENCOUNTER 2024-07-03 12:31 | Emergency (ER) | payer MEDICAID, SELFPAY ==
[2024-07-03 12:33] VITALS: BP 123/87; PULSE 99; RESP 18; TEMP 36.5; O2SAT 99
--- NOTE | 2024-07-03 12:33 | XR_ITS ---
WS: [id number] Exam: XR chest 1V portable [id number] Date/Time of Exam: 07/03/2024 1:18 PM Reason For Exam: cp Comparison 03/10/2019. The lungs are clear and fully inflated. Normal cardiomediastinal silhouette. No pleural effusion. Severe degenerative change of the LEFT glenohumeral joint. Healed RIGHT clavicle fracture. XR/XR chest 1V portable [id number] IMPRESSION: 1. No acute cardiopulmonary finding.
--- NOTE | 2024-07-03 12:33 | ECG_ITS ---
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 Measurements Intervals [place] Rate: 96 P: 36 NC: 153 QRS: -87 QRSD: 140 T: 32 QT: 356 QTc: 450 Interpretive Statements SINUS RHYTHM WITH OCCASIONAL SUPRAVENTRICULAR PREMATURE COMPLEXES POSSIBLE LEFT ATRIAL ENLARGEMENT [-0.1mV P-WAVE IN V1/V2] LEFT AXIS DEVIATION [QRS AXIS < -30] RIGHT BUNDLE BRANCH BLOCK [120+ ms QRS DURATION, UPRIGHT V1, 40+ ms S IN I/aVL/V4/V5/V6] Compared to ECG 09/01/2023 12:54:40 Left-axis deviation now present Ventricular premature complex(es) no longer present Left anterior fascicular block no longer present T-wave abnormality no longer present Possible ischemia no longer present Myocardial infarct finding still present Electronically Signed On 07-03-2024 22:24:36 CDT by Cory Figueroa M.D. [id number]
[2024-07-03 13:31] LABS: Basophils % 0.6 %; Eosinophils # 0.2 10^3/uL (0.0-0.8); Eosinophils % 3.5 %; Lymphocytes # 1.7 10^3/uL (0.8-4.8); Lymphocytes % 26.2 %; Mean Corpuscular HGB Conc 31.9 g/dL (30-55); Mean Corpuscular Hemoglobin 28.9 pg (27-33); Mean Corpuscular Volume 90.6 fl (82-101); Mean Platelet Volume 10.3 fL (7.4-10.4); Monocytes # 0.8 10^3/uL (0.2-0.9); Neutrophils # 3.64 10^3/uL (1.8-7.7); Neutrophils % 57.5 %; Nucleated Red Blood Cells % 0 %; Platelet Count 263 10^3/cmm (157-399); Red Blood Count 5.85 10^6/uL (3.85-5.65); Red Cell Distribution Width 13.8 % (12.1-15.1); White Blood Count 6.33 10^3/uL (3.29-11.43)
[2024-07-03 13:47] LABS: INR 0.92 (0.8-1.2)
[2024-07-03 13:50] LABS: D Dimer 0.44 ug/mLFEU (0-0.59)
[2024-07-03 13:52] LABS: Troponin(5th) Baseline 11 ng/L (0-15)
[2024-07-03 14:00] LABS: Alanine Aminotransferase 19 U/L (0-41); Albumin Level 4.3 g/dL (3.5-5.2); Alkaline Phosphatase 130 U/L (40-130); Aspartate Amino Transferase 20 U/L (0-40); Blood Urea Nitrogen 10 mg/dL (8-23); Carbon Dioxide 29 mmol/L (22-29); Chloride 97 mmol/L (98-107); Creatinine Clr Calc Pharmacy 78.8081; Globulin 4.1 g/dL (1.3-4.6); Glomerular Filtration Rate 68.3 mL/min (90-130); Glucose 80 mg/dL (65-115); Lipase 33 U/L (13-60); NT Pro B Type Natriuretic Pept < 36 pg/mL (0-125); Osmolality Calculated 282 mOsm/kg (285-295); Sodium 137 mmol/L (136-145); Total Bilirubin 0.5 mg/dL (0.15-1.2); Total Protein 8.4 g/dL (6.6-8.7)
[2024-07-03 14:02] LABS: Anion Gap 15.7 (5-19); Potassium 4.7 mmol/L (3.5-5.1)
--- NOTE | 2024-07-03 14:48 | ECG_ITS ---
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 Measurements Intervals [place] Rate: 94 P: 48 TX: 149 QRS: -85 QRSD: 137 T: 23 QT: 357 QTc: 447 Interpretive Statements SINUS RHYTHM POSSIBLE LEFT ATRIAL ENLARGEMENT [-0.1mV P-WAVE IN V1/V2] RIGHT BUNDLE BRANCH BLOCK [120+ ms QRS DURATION, UPRIGHT V1, 40+ ms S IN I/aVL/V4/V5/V6] LEFT ANTERIOR FASCICULAR BLOCK [QRS AXIS <= -45, QR IN I, RS IN II] POSSIBLE SEPTAL MYOCARDIAL INFARCTION , PROBABLY OLD [30 ms Q WAVE IN V1/V2] Compared to ECG 07/03/2024 12:35:46 Left anterior fascicular block now present Left-axis deviation no longer present Myocardial infarct finding still present Electronically Signed On 07-03-2024 22:27:35 CDT by Cory Figueroa M.D. [id number]
--- NOTE | 2024-07-03 14:56 | W.ED.SOB ---
HPI - SOB/Dyspnea General: Chief Complaint: Shortness of Breath/Dyspnea Stated Complaint: chest pain, SOB Time Seen by Provider: 07/03/24 14:48 Source: patient and family Mode of arrival: ambulatory Limitations: no limitations History of Present Illness: HPI Narrative: Patient is a nice 58-year-old male who presents to ED today with a complaint of pain with deep inhalation and dyspnea with exertion. Patient states he began noticing symptoms yesterday. At time of arrival he feels like his chest pain with inhalation has resolved. He is not having any ongoing chest pain currently. He states last year he was diagnosed with a pulmonary embolus. He is on Eliquis although admittedly has not been compliant with this medication. Patient states he does not feel short of breath at rest. No recent illness. He is not having any lower extremity swelling or calf pain. MD elicited complaint: shortness of breath Pertinent past history: PE Onset (ago): day(s) Severity: mild Exacerbating factors: exertion Relieving factors: nothing Known history of: PE Associated symptoms: Reports no associated symptoms and chest pain (with deep inhalation-resolved now); Deny abdominal pain, chest congestion, dizziness, extremity pain, fever(s), hemoptysis, lightheadedness, orthopnea, palpitations or syncope Treatment prior to arrival: none Related Data Home Medications ?Medication ?Instructions ?Recorded ?Confirmed folic acid 1 mg tablet 1 mg PO DAILY 09/01/23 07/03/24 metoprolol succinate 25 mg 25 mg PO DAILY 09/01/23 07/03/24 tablet,extended release 24 hr methocarbamol 750 mg tablet 750 mg PO BID 11/10/23 07/03/24 pantoprazole 40 mg tablet,delayed 40 mg PO DAILY 07/03/24 07/03/24 release Previous Rx's ?Medication ?Instructions ?Recorded apixaban 5 mg tablet (Eliquis) 5 mg PO BID #74 tabs 11/25/23 leflunomide 20 mg tablet 20 mg PO DAILY #90 tabs 03/01/24 Allergies Allergy/AdvReac Type Severity Reaction Status Date / Time Sulfa (Sulfonamide Allergy NAUSEA,DIAR Verified 07/03/24 12:41 Antibiotics) NORMA,VOMITI NG methotrexate AdvReac Intermediate nausea Verified 07/03/24 12:41 diarrhea Review of Systems Const: Denies: fever(s), chills, body aches, fatigue or malaise Card: Reports: chest pain (with deep inhalation-resolved now) and dyspnea on exertion; Denies: palpitations, irregular heart rhythm, edema, swelling of feet/ankles, lightheadedness, syncope, pre-syncope, orthopnea, leg pain with exertion or acrocyanosis Resp: Reports: dyspnea and pain on inspiration; Denies: productive cough, non-productive cough, wheezing, stridor, change in phlegm color, hemoptysis or chest congestion GI: Denies: abdominal pain Musc: Denies: neck pain, back pain, extremity pain, extremity swelling, joint swelling or joint redness Skin/Breast: Denies: rash Neuro: Denies: headache(s) or dizziness PFSH ED PFSH: Medical History High risk medication use Immunization counseling Rheumatoid arthritis with rheumatoid factor Surgical History Previous back surgery History of cholecystectomy Family History Other Family history of premature coronary artery disease Heart attack Denies family history of Rheumatoid arthritis Diabetes Lupus Hypertension Social History Smoking and tobacco/nicotine status: never used tobacco/nicotine Alcohol intake: current Alcohol intake frequency: holidays/special occasions only Substance/Drug Use: never Marital status: Physical Exam Const: COMMON NORMALS: no acute distress, average body habitus, patient oriented x3, no limitations, healthy appearing, alert and well nourished GENERAL APPEARANCE: cooperative HENMT: COMMON NORMALS: normocephalic and atraumatic HEAD & SCALP: normocephalic and atraumatic Neck/C-Spine: COMMON NORMALS: full ROM, no lymphadenopathy, supple, no meningeal signs and no JVD Chest: COMMONS NORMALS: normal inspection of the chest and normal palpation of entire chest wall Resp: COMMON NORMALS: normal respiratory effort and clear to auscultation bilaterally AUSCULTATION: clear to auscultation bilaterally Cardio: COMMON NORMALS: no JVD, regular rate and regular rhythm RATE: regular rate RHYTHM: regular rhythm GI: COMMON NORMALS: Normal to inspection, nondistended, normoactive bowel sounds present, Soft to palpation, non-tender, No hepatosplenomegaly present and no masses PALPATION: Yes Soft to palpation and Yes No hepatosplenomegaly present : COMMON NORMALS: Yes no CVA tenderness BLADDER/KIDNEY EXAM: Yes no CVA tenderness Back/Pelvis: COMMON NORMALS: no CVA tenderness and thoracic and lumbar spine normal to inspection Extremity: COMMON NORMALS: normal to inspection, no clubbing, cyanosis or edema, no calf tenderness and no pedal edema GENERAL: Yes normal exam except as noted Neuro: COMMON NORMALS: patient oriented x3, moves all extremities, no focal motor deficits, no sensory deficits noted and gait normal SENSORIUM/ORIENTATION: Yes alert MENINGEAL SIGNS: Yes no meningeal signs Skin: COMMON NORMALS: no rashes or lesions noted GENERAL SKIN EXAM: no rashes or lesions noted Course Vital Signs: Vital signs: Vital Signs Temperature 97.7 F 07/03/24 12:33 Pulse Rate 90 07/03/24 15:17 Respiratory Rate 18 07/03/24 12:33 Blood Pressure 131/96 07/03/24 15:17 Pulse Oximetry 91 07/03/24 15:17 Oxygen Delivery Me thod Room Air 07/03/24 12:33 MDM - SOB/Dyspnea Medical Decision Making Patient is a very nice 58-year-old male here complaining of some chest pain only present with deep inhalation that began yesterday and had resolved by the time he arrived here and during my initial exam. He did also have some complaints of dyspnea with exertion. Concerned as he has had a previous PE. He does take Eliquis but intermittently sometimes only takes this daily instead of twice daily as prescribed. Patient is not tachycardic or hypoxic upon arrival. His blood work including baseline troponin and repeat troponins are unremarkable. D-dimer also ordered from the waiting room and was unremarkable. At this time I do not see any indication for repeat CTA imaging. Recommend compliance with his Eliquis. He does have follow-up with primary care this week to discuss how long he needs to stay on this medication. CXR here was unremarkable. EKG showing no ischemia. He will be allowed discharge from with recommendations to follow-up with primary care later this week. Medical Records I reviewed the patient's medical records. Lab Data I reviewed the patient's lab results. 07/03/24 13:00 07/03/24 13:00 Labs/Radiology: Radiology Impressions Chest X-Ray 07/03/24 12:33 IMPRESSION: 1. No acute cardiopulmonary finding. Laboratory Results WBC 6.33 10^3/uL (3.29-11.43) 07/03/24 13:00 RBC 5.85 10^6/uL (3.85-5.65) H 07/03/24 13:00 Hgb 16.90 g/dL (11.27-16.99) 07/03/24 13:00 Hct 53.0 % (37-53) 07/03/24 13:00 MCV 90.6 fl (82-101) 07/03/24 13:00 MCH 28.9 pg (27-33) 07/03/24 13:00 MCHC 31.9 g/dL (30-55) 07/03/24 13:00 RDW 13.8 % (12.1-15.1) 07/03/24 13:00 Plt Count 263 10^3/cmm (157-399) 07/03/24 13:00 MPV 10.3 fL (7.4-10.4) 07/03/24 13:00 Neut % (Auto) 57.5 % 07/03/24 13:00 Lymph % (Auto) 26.2 % 07/03/24 13:00 [place] % (Auto) 12.0 % 07/03/24 13:00 Eos % (Auto) 3.5 % 07/03/24 13:00 Baso % (Auto) 0.6 % 07/03/24 13:00 Neut # (Auto) 3.64 10^3/uL (1.8-7.7) 07/03/24 13:00 Lymph # (Auto) 1.7 10^3/uL (0.8-4.8) 07/03/24 13:00 [place] # (Auto) 0.8 10^3/uL (0.2-0.9) 07/03/24 13:00 Eos # (Auto) 0.2 10^3/uL (0.0-0.8) 07/03/24 13:00 Baso # (Auto) 0.0 10^3/uL (0.0-0.1) 07/03/24 13:00 Nucleated RBC % (auto) 0 % 07/03/24 13:00 Nucleated RBCs # 0.0 /100WBC 07/03/24 13:00 PT 13.00 SECONDS (12.1-14.9) 07/03/24 13:00 INR 0.92 (0.8-1.2) 07/03/24 13:00 D-Dimer 0.44 ug/mLFEU (0-0.59) 07/03/24 13:00 Sodium 137 mmol/L (136-145) 07/03/24 13:00 Potassium 4.7 mmol/L (3.5-5.1) 07/03/24 13:00 Chloride 97 mmol/L (98-107) L 07/03/24 13:00 Carbon Dioxide 29 mmol/L (22-29) 07/03/24 13:00 Anion Gap 15.7 (5-19) 07/03/24 13:00 BUN 10 mg/dL (8-23) 07/03/24 13:00 Creatinine 1.1 mg/dL (0.7-1.2) 07/03/24 13:00 GFR Calculation 68.3 mL/min (90-130) L 07/03/24 13:00 Glucose 80 mg/dL (65-115) 07/03/24 13:00 Calculated Osmolality 282 mOsm/kg (285-295) L 07/03/24 13:00 Calcium 10.0 mg/dL (8.5-10.5) 07/03/24 13:00 Total Bilirubin 0.5 mg/dL (0.15-1.2) 07/03/24 13:00 AST 20 U/L (0-40) 07/03/24 13:00 ALT 19 U/L (0-41) 07/03/24 13:00 Alkaline Phosphatase 130 U/L (40-130) 07/03/24 13:00 Troponin T Baseline 11 ng/L (0-15) 07/03/24 13:00 Troponin T 120 Minute 10.16 ng/L (0-15) 07/03/24 15:02 Delta Troponin T -0.84 ABS# (0-10) L 07/03/24 15:02 NT-Pro-B Natriuret Pep < 36 pg/mL (0-125) 07/03/24 13:00 Total Protein 8.4 g/dL (6.6-8.7) 07/03/24 13:00 Albumin 4.3 g/dL (3.5-5.2) 07/03/24 13:00 Globulin 4.1 g/dL (1.3-4.6) 07/03/24 13:00 Lipase 33 U/L (13-60) 07/03/24 13:00 All radiology interpretation(s) finalized by discharge Discharge Plan Discharge Patient Disposition: Home Clinical Impression: Dyspnea on exertion Condition: Stable Prescriptions: No Action folic acid 1 mg tablet 1 mg PO DAILY metoprolol succinate 25 mg tablet extended release 24 hr 25 mg PO DAILY methocarbamol 750 mg tablet 750 mg PO BID leflunomide 20 mg tablet 20 mg PO DAILY Qty: 90 1RF Eliquis 5 mg tablet 5 mg PO BID Qty: 74 0RF pantoprazole 40 mg tablet,delayed release (DR/EC) 40 mg PO DAILY Discharge Orders: Discharge ED (Routine); Ordered 07/03/24 Ordered By: Ny Nuñez Referrals: Sunil Damon FNP [Primary Care Provider] - Activity Restrictions/Additional Instructions: As we discussed, please follow-up with primary care later this week as scheduled. You may return to the emergency department for worsening shortness of breath, difficulty breathing, severe chest pain, or any other concerns you may have. Print Language: Singaporean Coding Level of Care Code ED [employer] for Leyla Reynolds
[2024-07-03 15:17] VITALS: BP 131/96; PULSE 90; O2SAT 91
[2024-07-03 15:42] LABS: Troponin 5 2HR 10.16 ng/L (0-15)
[2024-07-03 15:45] LABS: Troponin 5 2HR Delta -0.84 ABS# (0-10)
[2024-07-03 16:00] VITALS: BP 119/92; PULSE 90; O2SAT 94
[2024-07-03 16:02] VITALS: BP 119/92; PULSE 90; O2SAT 95
== END 2024-07-03 16:08 | disposition home or self-care (01) ==
PROVIDERS: Emergency Medicine; Emergency Provider Physician Assistant; PCP Nurse Practitioner
DX: R06.00 Dyspnea, unspecified (principal); Z79.01 Long term (current) use of anticoagulants
CPT/HCPCS: 36415; 71045; 80053; 83690; 83880; 84484; 85025; 85378; 85610; 93005; 99285

== ENCOUNTER → 2024-07-05 09:40 | Outpatient (BNVA) | payer MEDICAID, SELFPAY | PROVIDERS: PCP Nurse Practitioner; Visit Provider Internal Medicine Rheumatology | DX: M05.79 Rheumatoid arthritis with rheumatoid factor of multiple sites without organ or systems involvement (principal); Z71.89 Other specified counseling; Z79.899 Other long term (current) drug therapy | CPT/HCPCS: 99214 ==

== ENCOUNTER 2024-08-07 07:59 | Oncology outpatient (recurring) (ONCR) | payer MEDICAID, SELFPAY ==
[2024-08-07] MEDS: acetaminophen 325 mg Tablet 650 MG PO (12:22)
[2024-08-07] MEDS: sodium chloride 0.9% 250 ML 75 ML IV (12:23)
[2024-08-07] MEDS: diphenhydrAMINE 50 mg/mL SDV 1mL 25 MG IVP (12:23)
[2024-08-07] MEDS: methylPREDNISolone sod succ 40 mg/mL INJ IVP (12:30)
[2024-08-07] MEDS: infliximab-abda 400 MG in sodium chloride 0.9% 250 ML 250 MG IV (12:45)
== END 2024-08-26 23:59 | disposition home or self-care (01) ==
PROVIDERS: PCP Nurse Practitioner; Visit Provider Internal Medicine Rheumatology
DX: M05.9 Rheumatoid arthritis with rheumatoid factor, unspecified (principal); Z79.899 Other long term (current) drug therapy; Z79.620 Long term (current) use of immunosuppressive biologic
CPT/HCPCS: 96375; 96413; A4222; J1200; J2919; J7050; J9999; Q5104

== ENCOUNTER 2024-09-26 08:06 | Oncology outpatient (recurring) (ONCR) | payer MEDICAID, SELFPAY ==
[2024-09-26 08:24] VITALS: BP 128/83; PULSE 81; TEMP 36.5; O2SAT 99
[2024-09-26 08:39] LABS: Hematocrit 43.3 % (37-53); Hemoglobin 13.40 g/dL (11.27-16.99); Mean Corpuscular HGB Conc 30.9 g/dL (30-55); Mean Corpuscular Hemoglobin 28.2 pg (27-33); Mean Corpuscular Volume 91.0 fl (82-101); Nucleated Red Blood Cells % 0 %; Platelet Count 281 10^3/cmm (157-399); Red Blood Count 4.76 10^6/uL (3.85-5.65); White Blood Count 6.24 10^3/uL (3.29-11.43)
[2024-09-26] MEDS: diphenhydrAMINE 50 mg/mL SDV 1mL 25 MG IVP (08:42)
[2024-09-26] MEDS: methylPREDNISolone sod succ 40 mg/mL INJ IVP (08:47)
[2024-09-26 08:58] LABS: Alanine Aminotransferase 21 U/L (0-41); Albumin Level 3.7 g/dL (3.5-5.2); Alkaline Phosphatase 109 U/L (40-130); Aspartate Amino Transferase 18 U/L (0-40); Globulin 4.1 g/dL (1.3-4.6); Total Protein 7.8 g/dL (6.6-8.7)
[2024-09-26 11:20] VITALS: BP 112/72; PULSE 68; RESP 16; TEMP 36.5; O2SAT 95
== END 2024-10-26 23:59 | disposition home or self-care (01) ==
PROVIDERS: PCP Nurse Practitioner; Visit Provider Internal Medicine Rheumatology
DX: M05.9 Rheumatoid arthritis with rheumatoid factor, unspecified (principal); Z79.899 Other long term (current) drug therapy
CPT/HCPCS: 80076; 82565; 85025; 86140; 96375; 96413; A4222; J1200; J2919; J7050; J9999; Q5104

== ENCOUNTER 2024-11-21 08:00 | Oncology outpatient (recurring) (ONCR) | payer MEDICAID, SELFPAY ==
[2024-11-07 08:59] LABS: Hematocrit 44.2 % (37-53); Hemoglobin 14.30 g/dL (11.27-16.99); Mean Corpuscular HGB Conc 32.4 g/dL (30-55); Mean Corpuscular Hemoglobin 29.1 pg (27-33); Mean Corpuscular Volume 90.0 fl (82-101); Nucleated Red Blood Cells % 0 %; Platelet Count 291 10^3/cmm (157-399); Red Blood Count 4.91 10^6/uL (3.85-5.65); White Blood Count 7.66 10^3/uL (3.29-11.43)
[2024-11-07] MEDS: methylPREDNISolone sod succ 40 mg/mL INJ IVP (09:00)
[2024-11-07] MEDS: diphenhydrAMINE 50 mg/mL SDV 1mL 25 MG IVP (09:04)
[2024-11-07 09:15] LABS: Alanine Aminotransferase 19 U/L (0-41); Albumin Level 4.0 g/dL (3.5-5.2); Alkaline Phosphatase 111 U/L (40-130); Aspartate Amino Transferase 21 U/L (0-40); Creatinine Clr Calc Pharmacy 66.3097; Globulin 4.1 g/dL (1.3-4.6); Total Protein 8.1 g/dL (6.6-8.7)
[2024-11-07] MEDS: infliximab-abda 800 MG in sodium chloride 0.9% 150 ML 10 MG IV (09:33)
[2024-11-07 09:37] VITALS: BP 130/87; PULSE 81; TEMP 36.5; O2SAT 95
[2024-11-07 09:38] LABS: Hepatitis B Surface Antigen Non-Reactive (Nonreactive)
[2024-11-07 09:55] VITALS: BP 166/99; PULSE 78; O2SAT 95
[2024-11-07 10:10] VITALS: BP 161/90; PULSE 76; TEMP 36.4; O2SAT 95
[2024-11-07 10:22] VITALS: BP 153/96; PULSE 81; TEMP 36.5
[2024-11-07 11:15] VITALS: BP 135/92; PULSE 77; TEMP 36.6; O2SAT 98
[2024-11-07 11:59] VITALS: BP 152/95; PULSE 86; TEMP 36.6; O2SAT 98
--- NOTE | 2024-11-17 08:30 | USR_ITS ---
PROCEDURE INFORMATION: Exam: US Duplex Upper Extremity Arteries Exam date and time: 11/17/2024 8:46 AM Age: 59 years old Clinical indication: Other: Right wrist lump; Additional info: Mass of wrist TECHNIQUE: Imaging protocol: Real-time ultrasound scan of the arteries of the bilateral upper extremities with 2-D felder scale, color Doppler flow and spectral waveform analysis. Complete exam. COMPARISON: CT shoulder LT wo con* [id number] 04/16/2021 11:07 AM FINDINGS: Right subclavian artery: No occlusion or significant stenosis. Normal waveform. Right axillary artery: No occlusion or significant stenosis. Normal waveform. Right brachial artery: No occlusion or significant stenosis. Normal waveform. Right radial artery: No occlusion or significant stenosis. Normal waveform. Right ulnar artery: No occlusion or significant stenosis. Normal waveform. Left subclavian artery: No occlusion or significant stenosis. Normal waveform. Left axillary artery: No occlusion or significant stenosis. Normal waveform. Left brachial artery: No occlusion or significant stenosis. Normal waveform. Left radial artery: No occlusion or significant stenosis. Normal waveform. Left ulnar artery: No occlusion or significant stenosis. Normal waveform. US/[place] [id number] IMPRESSION: No arterial stenosis.
--- NOTE | 2024-11-17 09:15 | US_ITS ---
WS: [id number] ULTRASOUND SOFT TISSUES RIGHT wrist HISTORY: Mass on right wrist COMPARISON: None available. TECHNIQUE: 2-D and color Doppler imaging is submitted. Soft tissue mass along the RIGHT wrist corresponds to a very hypoechoic mass with minimal through transmission. There are low-level echoes present. This mass measures 1.3 x 0.8 x 1.3 cm. US/US soft tissue/extremity [id number] IMPRESSION: Mass associated with the RIGHT wrist is most likely a ganglion.
[2024-11-21 08:02] VITALS: BP 151/91; PULSE 87; TEMP 36.7; O2SAT 95
[2024-11-21] MEDS: methylPREDNISolone sod succ 40 mg/mL INJ IVP (08:21)
[2024-11-21] MEDS: diphenhydrAMINE 50 mg/mL SDV 1mL 25 MG IVP (08:26)
[2024-11-21] MEDS: infliximab-abda 800 MG in sodium chloride 0.9% 150 ML 10 MG IV (08:52)
[2024-11-21 09:11] VITALS: BP 146/86; PULSE 76; TEMP 36.7
[2024-11-21 09:27] VITALS: BP 143/89; PULSE 74; TEMP 36.7; O2SAT 93
[2024-11-21 09:42] VITALS: BP 140/90; PULSE 70; RESP 17; TEMP 36.6; O2SAT 93
[2024-11-21 09:57] VITALS: BP 130/89; PULSE 75; TEMP 36.7; O2SAT 93
[2024-11-21 11:14] VITALS: BP 159/97; PULSE 80; RESP 16; TEMP 36.4; O2SAT 99
== END 2024-11-21 23:59 | disposition home or self-care (01) ==
PROVIDERS: Internal Medicine Rheumatology; PCP Nurse Practitioner; Visit Provider Internal Medicine Medical Oncology
DX: M05.9 Rheumatoid arthritis with rheumatoid factor, unspecified; Z79.899 Other long term (current) drug therapy; Z53.9 Procedure and treatment not carried out, unspecified reason
CPT/HCPCS: 76882; 80076; 82565; 85025; 85651; 86140; 86480; 86704; 86803; 87340; 93930; 96375; 96413; 96415; A4222; J1200; J2919; J7050; J9999; Q5104

== ENCOUNTER 2024-12-21 07:55 | Oncology outpatient (recurring) (ONCR) | payer MEDICAID, SELFPAY ==
[2024-12-21] VITALS (8 sets, daily range): BP systolic 133–160; BP diastolic 82–99; PULSE 65–82; RESP 16–17; TEMP 36.5–36.7; O2SAT 92–99
[2024-12-21] MEDS: methylPREDNISolone sod succ 40 mg/mL INJ IVP (08:35)
[2024-12-21] MEDS: diphenhydrAMINE 50 mg/mL SDV 1mL 25 MG IVP (08:38)
[2024-12-21] MEDS: infliximab-abda 800 MG in sodium chloride 0.9% 150 ML 10 MG IV (09:02)
== END 2024-12-26 23:59 | disposition home or self-care (01) ==
PROVIDERS: PCP Nurse Practitioner; Visit Provider Internal Medicine Medical Oncology
DX: M05.9 Rheumatoid arthritis with rheumatoid factor, unspecified (principal); Z79.899 Other long term (current) drug therapy
CPT/HCPCS: 96375; 96413; 96415; A4222; J1200; J2919; J7050; J9999; Q5104

== ENCOUNTER 2025-01-30 08:00 | Oncology outpatient (recurring) (ONCR) | payer MEDICAID, SELFPAY ==
[2025-01-29 08:24] VITALS: BMI 26.1
[2025-01-29 08:29] VITALS: BP 143/94; PULSE 83; RESP 18; TEMP 36.7; O2SAT 93
[2025-01-29 08:45] LABS: Hematocrit 45.4 % (37-53); Hemoglobin 15.00 g/dL (11.27-16.99); Mean Corpuscular HGB Conc 33.0 g/dL (30-55); Mean Corpuscular Hemoglobin 29.2 pg (27-33); Mean Corpuscular Volume 88.5 fl (82-101); Nucleated Red Blood Cells % 0 %; Platelet Count 275 10^3/cmm (157-399); Red Blood Count 5.13 10^6/uL (3.85-5.65); White Blood Count 5.13 10^3/uL (3.29-11.43)
[2025-01-29] MEDS: diphenhydrAMINE 50 mg/mL SDV 1mL 25 MG IVP (09:02)
[2025-01-29 09:03] LABS: Alanine Aminotransferase 18 U/L (0-41); Albumin Level 4.1 g/dL (3.5-5.2); Alkaline Phosphatase 110 U/L (40-130); Aspartate Amino Transferase 23 U/L (0-40); Globulin 4.1 g/dL (1.3-4.6); Total Protein 8.2 g/dL (6.6-8.7)
[2025-01-29] MEDS: methylPREDNISolone sod succ 40 mg/mL INJ IVP (09:04)
[2025-01-29] MEDS: infliximab-abda 800 MG in sodium chloride 0.9% 150 ML 175 MG IV (09:36)
[2025-01-29 11:25] VITALS: BP 155/98; PULSE 99; RESP 18; TEMP 36.6; O2SAT 96
== END 2025-02-25 23:59 | disposition home or self-care (01) ==
PROVIDERS: Internal Medicine Rheumatology; PCP Nurse Practitioner; Visit Provider Internal Medicine Medical Oncology
DX: M05.9 Rheumatoid arthritis with rheumatoid factor, unspecified (principal); Z79.899 Other long term (current) drug therapy
CPT/HCPCS: 80076; 82565; 85025; 85651; 86140; 96375; 96413; 96415; A4222; J1200; J2919; J7050; J9999; Q5104

== ENCOUNTER 2025-03-12 08:03 | Oncology outpatient (recurring) (ONCR) | payer MEDICAID, SELFPAY ==
[2025-03-12 08:10] VITALS: BP 137/71; PULSE 96; RESP 17; TEMP 36.4; O2SAT 99
[2025-03-12] MEDS: diphenhydrAMINE 50 mg/mL SDV 1mL 25 MG IVP (08:36)
[2025-03-12] MEDS: methylPREDNISolone sod succ 40 mg/mL INJ IVP (08:43)
[2025-03-12] MEDS: infliximab-abda 800 MG in sodium chloride 0.9% 150 ML 155 MG IV (09:23)
[2025-03-12 11:05] VITALS: BP 124/83; PULSE 88; RESP 18; TEMP 36.3; O2SAT 100
== END 2025-03-28 23:59 | disposition home or self-care (01) ==
PROVIDERS: PCP Nurse Practitioner; Visit Provider Internal Medicine Medical Oncology
DX: M05.9 Rheumatoid arthritis with rheumatoid factor, unspecified (principal); Z79.899 Other long term (current) drug therapy
CPT/HCPCS: 96375; 96413; A4222; J1200; J2919; J7050; J9999; Q5104